=== PATIENT | female | born 1990 | race Caucasian/White ===

== ENCOUNTER → 2016-10-07 | Outpatient (CLI) | payer OTHER ==
[2016-10-07 12:41] LABS: BASO # 0.1 K/mm3 (0.0-0.2); BASO % 0.9 % (0.0-1.0); EOS # 0.2 K/mm3 (0.0-0.50); EOS % 2.6 % (0.0-3.0); LARGE UNSTAINED CELL # 0.1 K/mm3 (0.0-0.4); LARGE UNSTAINED CELL % 1.1 % (0.0-4.0); LYMPH # 2.1 K/mm3 (1.5-6.5); LYMPH % 23.1 % (24.0-44.0); MEAN CORPUSCULAR HEMOGLOBIN 28.5 pg (27.0-33.0); MEAN CORPUSCULAR VOLUME 83.7 fl (80.0-96.0); MONO # 0.4 K/mm3 (0.0-0.8); MONO % 4.4 % (0.0-5.0); NEUTROPHILS # 6.3 K/mm3 (1.8-7.7); NEUTROPHILS % 67.8 % (36.0-66.0); PLATELET COUNT, AUTOMATED 346 k/mm3 (150-450); RED CELL DISTRIBUTION WIDTH 13.5 % (11.5-14.5); WHITE BLOOD COUNT 9.3 K/mm3 (4.0-10.0)
[2016-10-07 13:44] LABS: HBsAg Prenatal NEGATIVE (NEGATIVE)
[2016-10-07 13:56] LABS: CONTROL LINE INT CTR LINE PRESENT; HIV SCRN NEGATIVE (NEGATIVE); HIV SCRN1 NEGATIVE (NEGATIVE)
== END ==
LOC: M WUC 10:36
PROVIDERS: ATTEND Advanced Practice Midwife
DX: Z34.81 Encounter for supervision of other normal pregnancy, first trimester (principal)

== ENCOUNTER 2016-10-11 02:22 | Emergency (ER) | payer OTHER ==
[2016-10-11] MEDS ORDERED: ONDANSETRON 4MG/2ML VIAL (J2405) As Ordered ONE (03:22)
[2016-10-11 03:52] LABS: BASO # 0.1 K/mm3 (0.0-0.2); BASO % 0.5 % (0.0-1.0); EOS # 0.3 K/mm3 (0.0-0.50); EOS % 2.3 % (0.0-3.0); LARGE UNSTAINED CELL # 0.1 K/mm3 (0.0-0.4); LARGE UNSTAINED CELL % 1.2 % (0.0-4.0); LYMPH # 3.2 K/mm3 (1.5-6.5); LYMPH % 27.5 % (24.0-44.0); MEAN CORPUSCULAR HEMOGLOBIN 28.5 pg (27.0-33.0); MEAN CORPUSCULAR HGB CONC 34.4 g/dl (32.0-36.5); MONO # 0.6 K/mm3 (0.0-0.8); MONO % 5.3 % (0.0-5.0); NEUTROPHILS # 7.3 K/mm3 (1.8-7.7); NEUTROPHILS % 63.3 % (36.0-66.0); PLATELET COUNT, AUTOMATED 354 k/mm3 (150-450); RED CELL DISTRIBUTION WIDTH 13.3 % (11.5-14.5); WHITE BLOOD COUNT 11.4 K/mm3 (4.0-10.0)
[2016-10-11 04:29] LABS: ALBUMIN 3.5 GM/DL (3.2-5.2); ALBUMIN/GLOBULIN RATIO 1.17 (1.00-1.93); ALKALINE PHOSPHATASE 58 U/L (45-117); ALT/SGPT 25 U/L (12-78); AMYLASE 28 U/L (25-115); ANION GAP 9 MEQ/L (8-16); AST/SGOT 16 U/L (15-37); BILIRUBIN,DIRECT < 0.1 MG/DL (0.0-0.2); BILIRUBIN,TOTAL 0.2 MG/DL (0.2-1.0); BLOOD UREA NITROGEN 8 MG/DL (7-18); CALCIUM LEVEL 8.6 MG/DL (8.5-10.1); CARBON DIOXIDE LEVEL 26 MEQ/L (21-32); CHLORIDE LEVEL 107 MEQ/L (98-107); CREATININE FOR GFR 0.73 MG/DL (0.55-1.02); GLOMERULAR FILTRATION RATE > 60.0 (>60); GLUCOSE, FASTING 87 MG/DL (70-105); HCG, SERUM QUANTITATIVE 7962 MIU/ML; POTASSIUM SERUM 3.8 MEQ/L (3.5-5.1); SODIUM LEVEL 142 MEQ/L (136-145); TOTAL PROTEIN 6.5 GM/DL (6.4-8.2)
[2016-10-11] MEDS ORDERED: metroNIDAZOLE (FLAGYL) 500 MG TAB As Ordered ONE (06:39)
--- NOTE | 2016-10-11 06:52 | EDDOCDS ---
Physician Documentation [facility] Name: Sarah Pope Age: 26 yrs Sex: Female : 1990 Arrival Date: 10/11/2016 Time: 02:22 Bed 11 Private MD: Disposition: 10/11/16 06:34 Discharged to Home/Self Care. Impression: related conditions, unspecified, first trimester, Abdominal and pelvic pain. - Condition is Stable. - Discharge Instructions: Abdominal Pain During , Ectopic , Abdominal Pain During , Uavw-[id number]-[id number], Ectopic , Umcy-ns-Rins. - Medication Reconciliation, Local Pharmacy Hours form. - Follow up: Rachana Cummings MD; When: 4 - 5 days; Reason: Continuance of care. - Problem is an ongoing problem. - Symptoms have improved. - Notes: YOUR ULTRASOUND SHOWS A GESTATIONAL SAC IN YOUR UTERUS WITHOUT POLE. THIS CAN INDICATE THAT EITHER THE IS TOO EARY FOR DETECTION OR IT COULD INDICATE THAT YOU ARE EXPERIENCING AN ECTOPIC . USE THE LAB SLIP PROVIDED TO HAVE A REPEAT BLOOD DRAW IN 3 DAYS AND CALL A WOMAN'S PERSPECTIVE ON WEDNESDAY MORNING TO GET SCHEDULED FOR AN APPOINTMENT. Historical: - Allergies: Haldol (Anaphylaxis); - Home Meds: 1. naproxen 250 mg Oral tab 2 tabs as needed Stopped due to 2. Prilosec 20 mg Oral cpDR 1 cap once daily stopped due to 3. med for blood pressure 4. amlodipine 10 mg Oral tab 1 tab once daily stopped due to - PMHx: alcohol abuse; GERD; Hypertension; - PSHx: Tonsillectomy; - Social history: Smoking status: other No barriers to communication noted, The patient speaks fluent Bengali, Speaks appropriately for age. - Family history: Not pertinent. - : The pt / caregiver states he / she is not on anticoagulants. Home medication list is obtained from the patient. - Exposure Risk Screening:: None identified. 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 Not a normal period. Tested positive for last Wednesday Vital Signs: 02:36 BP 177 / 105; Pulse 95; Resp 20; Temp 98.2(O); Pulse Ox 97% on R/A; Weight 149.69 kg / kmg1 330.01 lbs (M); Height 5 ft. 10 in. (177.80 cm) (R); Pain 6/10; 06:48 BP 136 / 70; Pulse 70; Resp 16; Temp 97(O); Pulse Ox 98% on R/A; Pain 0/10; jp6 02:36 Body Mass Index 47.35 (149.69 kg, 177.80 cm) [facility] MDM: 03:17 Ondansetron 4 mg IVP once ordered. mm11 03:17 IV Saline Lock ordered. mm11 03:17 Undress patient appropriately for examination ordered. mm11 03:17 Set up pelvic ordered. mm11 03:17 NS 0.9% 1000 ml IV at bolus once ordered. mm11 03:18 Amylase Ordered. EDMS 03:18 Basic Metabolic Profile Ordered. EDMS 03:18 CBC with Diff Ordered. EDMS 03:18 Lipase Ordered. EDMS 03:18 Liver Profile Ordered. EDMS 03:18 Type & Screen Ordered. EDMS 03:18 Urinalysis Ordered. EDMS 03:18 Urine Culture Ordered. EDMS 03:18 Hcg, Serum Quantitative Ordered. EDMS 03:18 NOTHING BY MOUTH+DIET ordered. EDMS 04:05 CBC with Diff Reviewed. mm11 04:05 Urinalysis Reviewed. mm11 04:06 GC & Chlamydia Amplification Ordered. EDMS 04:06 Wet Prep Ordered. EDMS 04:12 1st Trimester Us Ordered. EDMS 04:48 Amylase Reviewed. mm11 04:48 Basic Metabolic Profile Reviewed. mm11 04:48 Lipase Reviewed. mm11 04:48 Liver Profile Reviewed. mm11 04:48 Type & Screen Reviewed. mm11 04:48 Hcg, Serum Quantitative Reviewed. mm11 04:48 Wet Prep Reviewed. mm11 05:19 Financial registration complete. hs2 05:49 [facility] Payment Agreement was scanned into [employer] and attached to record. hs2 06:16 GC & Chlamydia Amplification Reviewed. mm11 06:33 metroNIDAZOLE 500 mg PO once ordered. mm11 Administered Medications: 03:53 Drug: NS 0.9% 1000 ml [sodium chloride 0.9 % intravenous solution] Route: IV; Rate: jp6 bolus; Site: left upper arm; 03:56 Drug: Ondansetron 4 mg Route: IVP; Site: left forearm; jp6 06:47 Drug: metroNIDAZOLE 500 mg [metronidazole 500 mg tablet (1 tabs)] Route: PO; jp6 Signatures: Dispatcher [employer] Caitlyn English, RN RN kmg1 Brenden Richardson, DO mm11 Pati Ch, Reg Reg hs2 Ayala Bedoya,ABI RN jp6 The chart was reviewed and I authenticate all verbal orders and agree with the evaluation and treatment provided.Attachments: 05:49 [facility] Payment Agreement hs2 MTDD
--- NOTE | 2016-10-11 06:53 | EDDOCDS ---
Nurse's Notes [facility] Name: Sarah Pope Age: 26 yrs Sex: Female : 1990 Arrival Date: 10/11/2016 Time: 02:22 Bed 11 Private MD: Diagnosis: related conditions, unspecified, first trimester;Abdominal and pelvic pain Presentation: 10/11 02:30 Presenting complaint: Patient states: Low mid and right sided abdominal pain started kmg1 Wednes evening. Got worse today. Denies vaginal bleeding. Risk factors: the patient reports no vaginal bleeding. Suicide/Homicide risk assessment- the patient denies having any suicidal and/or homicidal ideations and does not present with any other emotional, behavioral or mental health complaints. Status: Patient is not a director career services or dependent. Transition of care: patient was not received from another setting of care. 02:30 Acuity: RAFAEL Level 3 km 02:30 Method Of Arrival: Walkin/Carried/[facility]std [facility] 06:51 Adult Sepsis Screening: The patient does not have new or worsening altered mentation. jp6 Patient's respiratory rate is less than 22. Systolic blood pressure is greater than 100. Patient has a qSOFA score of 0- Negative Sepsis Screen. Triage Assessment: 02:36 General: Appears in no apparent distress, uncomfortable, Behavior is appropriate for kmg1 age, crying. Pain: Location: suprapubic area and right lower quadrant Pain currently is 7 out of 10 on a pain scale. Quality of pain is described as. HIV screening NA for this visit Offered previously. GI: Abdomen is non- distended obese, Reports lower abdominal pain, nausea. 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 Not a normal period. Tested positive for last Wednesday Historical: - Allergies: Haldol (Anaphylaxis); - Home Meds: 1. naproxen 250 mg Oral tab 2 tabs as needed Stopped due to 2. Prilosec 20 mg Oral cpDR 1 cap once daily stopped due to 3. med for blood pressure 4. amlodipine 10 mg Oral tab 1 tab once daily stopped due to - PMHx: alcohol abuse; GERD; Hypertension; - PSHx: Tonsillectomy; - Social history: Smoking status: other No barriers to communication noted, The patient speaks fluent Taiwanese, Speaks appropriately for age. - Family history: Not pertinent. - : The pt / caregiver states he / she is not on anticoagulants. Home medication list is obtained from the patient. - Exposure Risk Screening:: None identified. Screenin:05 Screening information is obtained from the patient. Fall risk: No risks identified. jp6 Assistance ADL's: requires no assistance with activities of daily living. Abuse/DV Screen: The patient / caregiver reports he/she is: not in a situation that causes fear, pain or injury. Nutritional screening: No deficits noted. Advance Directives: Currently, there is no health care proxy. There is no active DNR order. There is no living will. home support is adequate. Assessment: 03:05 General: Appears distressed, obese, well developed, well nourished, Behavior is jp6 anxious, appropriate for age, cooperative. Pain: Location: abdomen and right lower quadrant and suprapubic area Pain currently is 6 out of 10 on a pain scale. Quality of pain is described as pressure. Neurological: No deficits noted. Level of Consciousness is awake, Oriented to person, place, time. EENT: No deficits noted. Cardiovascular: No deficits noted. Capillary refill < 3 seconds Heart tones S1 S2 present. Respiratory: Airway is patent Respiratory effort is even, unlabored, Respiratory pattern is regular, symmetrical, Breath sounds are clear bilaterally. GI: Abdomen is flat, non- distended obese, Stools are reported to be "green". Bowel sounds present X 4 quads. Abd is soft X 4 quads. : No deficits noted. Derm: Skin is pink, warm & dry. Musculoskeletal: No deficits noted. 04:00 Reassessment: Patient appears in no apparent distress at this time. jp6 06:48 Reassessment: Patient appears in no apparent distress at this time. General: Appears. jp6 Pain: Denies pain. Cardiovascular: No deficits noted. Respiratory: Airway is patent Respiratory effort is even, unlabored, Respiratory pattern is regular, symmetrical. Derm: Skin is pink, warm & dry. Vital Signs: 02:36 BP 177 / 105; Pulse 95; Resp 20; Temp 98.2(O); Pulse Ox 97% on R/A; Weight 149.69 kg kmg1 (M); Height 5 ft. 10 in. (177.80 cm) (R); Pain 6/10; 06:48 BP 136 / 70; Pulse 70; Resp 16; Temp 97(O); Pulse Ox 98% on R/A; Pain 0/10; jp6 02:36 Body Mass Index 47.35 (149.69 kg, 177.80 cm) [facility] Vitals: 02:36 Log In Time: October 11, 2016 at 02:24. [facility] ED Course: 02:24 Patient visited by Pati Ch Reg. hs2 02:24 Patient moved to Waiting hs2 02:33 Triage Initiated [facility] 02:48 Yesi Jain,RN is Primary Nurse. [facility] 02:48 Patient moved to 11 km 02:54 Primary Nurse role handed off by Yesi Jain,ABI [facility] 02:56 Ayala Bedoya,RN is Primary Nurse. jp6 03:05 The patient / caregiver is instructed regarding the plan of care and ED course. jp6 03:09 Brenden Richardson DO is Attending Physician. mm11 03:09 Patient visited by Brenden Richardson DO. mm11 03:16 Patient visited by Brenden Richardson DO. mm11 03:22 Urinalysis Sent. kmg1 03:22 Urine Culture Sent. kmg1 03:53 Inserted saline lock: 20 gauge in left antecubital area and blood collected. Labs jp6 drawn. (by ED staff). Sent per order to lab. 04:48 Patient visited by Brenden Richardson DO. mm11 05:49 [facility] Payment Agreement was scanned into [employer] and attached to record. hs2 05:51 Patient visited by Ayala Bedoya,ABI. jp6 06:33 Rachana Cummings MD is Referral Physician. mm11 06:48 Discontinued lock bleeding controlled, pressure dressing applied, No redness/swelling jp6 at site. No procedures done that require assistance. Administered Medications: 03:53 Drug: NS 0.9% 1000 ml [sodium chloride 0.9 % intravenous solution] Route: IV; Rate: jp6 bolus; Site: left upper arm; 03:56 Drug: Ondansetron 4 mg Route: IVP; Site: left forearm; jp6 06:47 Drug: metroNIDAZOLE 500 mg [metronidazole 500 mg tablet (1 tabs)] Route: PO; jp6 Order Results: Lab Order: Amylase; SPEC'10/11/16 03:43 Test: AMYLASE; Value: 28; Range: 25-115; Units: U/L; Status: F Lab Order: Basic Metabolic Profile; SPEC'10/11/16 03:43 Test: GLUCOSE, FASTING; Value: 87; Range: 70-105; Units: MG/DL; Status: F Test: BLOOD UREA NITROGEN; Value: 8; Range: 7-18; Units: MG/DL; Status: F Test: CREATININE FOR GFR; Value: 0.73; Range: 0.55-1.02; Units: MG/DL; Status: F Test: GLOMERULAR FILTRATION RATE; Value: > 60.0; Range: >60; Status: F Test: SODIUM LEVEL; Value: 142; Range: 136-145; Units: MEQ/L; Status: F Test: POTASSIUM SERUM; Value: 3.8; Range: 3.5-5.1; Units: MEQ/L; Status: F Test: CHLORIDE LEVEL; Value: 107; Range: 98-107; Units: MEQ/L; Status: F Test: CARBON DIOXIDE LEVEL; Value: 26; Range: 21-32; Units: MEQ/L; Status: F Test: ANION GAP; Value: 9; Range: 8-16; Units: MEQ/L; Status: F Test: CALCIUM LEVEL; Value: 8.6; Range: 8.5-10.1; Units: MG/DL; Status: F Test Note: ; Units are mL/min/1.73 m2 Chronic Kidney Disease Staging per NKF: Stage I & II GFR >=60 Normal to Mildly Decreased Stage III GFR 30-59 Moderately Decreased Stage IV GFR 15-29 Severely Decreased Stage V GFR <15 Very Little GFR Left ESRD GFR <15 on [facility] Lab Order: CBC with Diff; SPEC10/11/16 03:43 Test: WHITE BLOOD COUNT; Value: 11.4; Range: 4.0-10.0; Abnormal: Above high normal; Units: K/mm3; Status: F Test: RED BLOOD COUNT; Value: 4.49; Range: 4.00-5.40; Units: M/mm3; Status: F Test: HEMOGLOBIN; Value: 12.8; Range: 12.0-16.0; Units: g/dl; Status: F Test: HEMATOCRIT; Value: 37.3; Range: 36.0-47.0; Units: %; Status: F Test: MEAN CORPUSCULAR VOLUME; Value: 83.0; Range: 80.0-96.0; Units: fl; Status: F Test: MEAN CORPUSCULAR HEMOGLOBIN; Value: 28.5; Range: 27.0-33.0; Units: pg; Status: F Test: MEAN CORPUSCULAR HGB CONC; Value: 34.4; Range: 32.0-36.5; Units: g/dl; Status: F Test: RED CELL DISTRIBUTION WIDTH; Value: 13.3; Range: 11.5-14.5; Units: %; Status: F Test: PLATELET COUNT, AUTOMATED; Value: 354; Range: 150-450; Units: k/mm3; Status: F Test: NEUTROPHILS %; Value: 63.3; Range: 36.0-66.0; Units: %; Status: F Test: LYMPH %; Value: 27.5; Range: 24.0-44.0; Units: %; Status: F Test: MONO %; Value: 5.3; Range: 0.0-5.0; Abnormal: Above high normal; Units: %; Status: F Test: EOS %; Value: 2.3; Range: 0.0-3.0; Units: %; Status: F Test: BASO %; Value: 0.5; Range: 0.0-1.0; Units: %; Status: F Test: LARGE UNSTAINED CELL %; Value: 1.2; Range: 0.0-4.0; Units: %; Status: F Test: NEUTROPHILS #; Value: 7.3; Range: 1.8-7.7; Units: K/mm3; Status: F Test: LYMPH #; Value: 3.2; Range: 1.5-6.5; Units: K/mm3; Status: F Test: MONO #; Value: 0.6; Range: 0.0-0.8; Units: K/mm3; Status: F Test: EOS #; Value: 0.3; Range: 0.0-0.50; Units: K/mm3; Status: F Test: BASO #; Value: 0.1; Range: 0.0-0.2; Units: K/mm3; Status: F Test: LARGE UNSTAINED CELL #; Value: 0.1; Range: 0.0-0.4; Units: K/mm3; Status: F Lab Order: Lipase; [facility] 10/11/16 03:43 Test: LIPASE; Value: 99; Range: 73-393; Units: U/L; Status: F Lab Order: Liver Profile; [facility] 10/11/16 03:43 Test: AST/SGOT; Value: 16; Range: 15-37; Units: U/L; Status: F Test: ALT/SGPT; Value: 25; Range: 12-78; Units: U/L; Status: F Test: ALKALINE PHOSPHATASE; Value: 58; Range: 45-117; Units: U/L; Status: F Test: BILIRUBIN,TOTAL; Value: 0.2; Range: 0.2-1.0; Units: MG/DL; Status: F Test: BILIRUBIN,DIRECT; Value: < 0.1; Range: 0.0-0.2; Units: MG/DL; Status: F Test: TOTAL PROTEIN; Value: 6.5; Range: 6.4-8.2; Units: GM/DL; Status: F Test: ALBUMIN; Value: 3.5; Range: 3.2-5.2; Units: GM/DL; Status: F Test: ALBUMIN/GLOBULIN RATIO; Value: 1.17; Range: 1.00-1.93; Status: F Lab Order: Type & Screen; [facility] 10/11/16 03:33 Test: BLOOD TYPE; Value: A POS; Status: F Test: AB SCREEN (INDIRECT ROSENDA)GEL; Value: NEGATIVE; Status: F Lab Order: Urinalysis; [facility] 10/11/16 03:23 Test: APPEARANCE, URINE; Value: CLEAR; Range: CLEAR; Status: F Test: COLOR, URINE; Value: STRAW; Range: YELLOW; Status: F Test: PH,URINE; Value: 6.0; Range: 5.0-9.0; Units: UNITS; Status: F Test: SPECIFIC GRAVITY URINE AUTO; Value: 1.006; Range: 1.002-1.035; Status: F Test: PROTEIN, URINE AUTO; Value: NEGATIVE; Range: NEGATIVE; Units: mg/dL; Status: F Test: GLUCOSE, URINE (UA) AUTO; Value: NEGATIVE; Range: NEGATIVE; Units: mg/dL; Status: F Test: KETONE, URINE AUTO; Value: NEGATIVE; Range: NEGATIVE; Units: mg/dL; Status: F Test: UROBILINOGEN, URINE AUTO; Value: 0.2; Range: 0.0-2.0; Units: mg/dL; Status: F Test: BILIRUBIN, URINE AUTO; Value: NEGATIVE; Range: NEGATIVE; Status: F Test: NITRITE, URINE AUTO; Value: NEGATIVE; Range: NEGATIVE; Status: F Test: LEUKOCYTE ESTERASE, URINE AUTO; Value: TRACE; Range: NEGATIVE; Abnormal: Above high normal; Status: F Test: BLOOD, URINE BLOOD; Value: NEGATIVE; Range: NEGATIVE; Status: F Test: WBC, URINE AUTO; Value: 1; Range: 0-3; Units: /HPF; Status: F Test: RBC, URINE AUTO; Value: 2; Range: 0-3; Units: /HPF; Status: F Test: BACTERIA, URINE AUTO; Value: 1+; Range: NEGATIVE; Abnormal: Above high normal; Status: F Test: SQUAMOUS EPITHELIAL CELL UR AU; Value: 2; Range: 0-6; Units: /HPF; Status: F Test: HYALINE CAST, URINE AUTO; Value: 0; Range: 0-1; Units: /LPF; Status: F Lab Order: Hcg, Serum Quantitative; SPEC'M 10/11/16 03:43 Test: HCG, SERUM QUANTITATIVE; Value: 7962; Units: MIU/ML; Status: F Test Note: ; GESTATIONAL AGE APPROXIMATE HCG RANGE (MIU/ML) 0.2-1 WEEK 5-50 1-2 WEEKS 50-500 2-3 WEEKS 100-5,000 3-4 WEEKS 500-10,000 4-5 WEEKS 1,000-50,000 5-6 WEEKS 10,000-100,000 6-8 WEEKS 15,000-200,000 2-3 MONTHS 10,000-100,000 NON FEMALES LESS THAN 3.0 Patient samples may contain human heterophilic antibodies that could react with immunoassays to give falsely elevated or depressed results. This assay has been designed to minimize interference from heterophilic antibodies. Elevated hCG levels have also been associated with trophoblastic disease and nontrophoblastic neoplasms. The possibility of having these diseases should be considered before a diagnosis of is made. This test is not intended for use as a surrogate marker for aiding in the diagnosis or monitoring the treatment of cancer patients. Siemens Priccut methodology. Lab Order: Wet Prep; SPEC'M 10/11/16 04:05 Test: WET PREP; Value: WET PREP RESULT; Status: F Test: WET PREP; Value: MANY EPITHELIAL CELLS PRESENT; Status: F Test: WET PREP; Value: MODERATE WBC; Status: F Test: WET PREP; Value: FEW CLUE CELLS PRESENT; Status: F Test: WET PREP; Value: MANY LONG RODS PRESENT; Status: F Lab Order: GC & Chlamydia Amplification; SPEC'M 10/11/16 04:05 Test: CHLAMYDIA DNA AMPLIFICATION; Value: NEGATIVE; Range: NEGATIVE; Status: F Test: GC DNA AMPLIFICATION; Value: NEGATIVE; Range: NEGATIVE; Status: F Outcome: 06:34 Discharge ordered by Provider. mm11 06:48 Discharge Assessment: Patient awake, alert and oriented x 3. No cognitive and/or jp6 functional deficits noted. Patient verbalized understanding of disposition instructions. patient administered narcotics - no. The following High Risk Discharge criteria are identified: None. Discharged to home ambulatory, with family. Condition: stable. Discharge instructions given to patient, Instructed on discharge instructions, follow up and referral plans. Demonstrated understanding of instructions, Pt was receptive of discharge instructions/ teaching. No special radiology studies were completed. Property :Personal belongings accompany Pt. 06:51 Patient left the ED. jp6 Signatures: Caitlyn Ortiz, RN RN kmg1 Brenden Richardson, DO mm11 Telly Valiente RN RN ruthb Pati Ch, Reg Reg hs2 Ayala Bedoya RN RN jp6 MTDD
--- NOTE | 2016-10-11 07:30 | REPUSA ---
CLINICAL HISTORY: Pain. TECHNIQUE: Transabdominal and transvaginal ultrasound of the pelvis was performed. FINDINGS: The uterus is anteverted. Gestational sac measures 11.6 mm mean diameter, corresponding to gestational age of 6 weeks.Yoke sac is noted. There is no pole or heart beat. Both ovaries are identified without adnexal mass or pelvic fluid collection.2.4 cm right corpus luthe um cyst is noted. IMPRESSION: IUP without pole or heart beat. While this may represent an early , missed is not excluded. Short term follow up study may be obtained in 3-4 days.
--- NOTE | 2016-10-13 07:52 | EDDOCDS ---
Nurse's Notes [facility] Name: Sarah Pope Age: 26 yrs Sex: Female : 1990 Arrival Date: 10/11/2016 Time: 02:22 Bed 11 Private MD: Diagnosis: related conditions, unspecified, first trimester;Abdominal and pelvic pain Presentation: 10/11 02:30 Presenting complaint: Patient states: Low mid and right sided abdominal pain started kmg1 Wednes evening. Got worse today. Denies vaginal bleeding. Risk factors: the patient reports no vaginal bleeding. Suicide/Homicide risk assessment- the patient denies having any suicidal and/or homicidal ideations and does not present with any other emotional, behavioral or mental health complaints. Status: Patient is not a volunteer services coordinator or dependent. Transition of care: patient was not received from another setting of care. 02:30 Acuity: RAFAEL Level 3 km 02:30 Method Of Arrival: Walkin/Carried/[place]std [facility] [place] 06:51 Adult Sepsis Screening: The patient does not have new or worsening altered mentation. jp6 Patient's respiratory rate is less than 22. Systolic blood pressure is greater than 100. Patient has a qSOFA score of 0- Negative Sepsis Screen. Triage Assessment: 02:36 General: Appears in no apparent distress, uncomfortable, Behavior is appropriate for kmg1 age, crying. Pain: Location: suprapubic area and right lower quadrant Pain currently is 7 out of 10 on a pain scale. Quality of pain is described as. HIV screening NA for this visit Offered previously. GI: Abdomen is non- distended obese, Reports lower abdominal pain, nausea. 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 Not a normal period. Tested positive for last Wednesday Historical: - Allergies: Haldol (Anaphylaxis); - Home Meds: 1. naproxen 250 mg Oral tab 2 tabs as needed Stopped due to 2. Prilosec 20 mg Oral cpDR 1 cap once daily stopped due to 3. med for blood pressure 4. amlodipine 10 mg Oral tab 1 tab once daily stopped due to - PMHx: alcohol abuse; GERD; Hypertension; - PSHx: Tonsillectomy; - Social history: Smoking status: other No barriers to communication noted, The patient speaks fluent Namibian, Speaks appropriately for age. - Family history: Not pertinent. - : The pt / caregiver states he / she is not on anticoagulants. Home medication list is obtained from the patient. - Exposure Risk Screening:: None identified. Screenin:05 Screening information is obtained from the patient. Fall risk: No risks identified. jp6 Assistance ADL's: requires no assistance with activities of daily living. Abuse/DV Screen: The patient / caregiver reports he/she is: not in a situation that causes fear, pain or injury. Nutritional screening: No deficits noted. Advance Directives: Currently, there is no health care proxy. There is no active DNR order. There is no living will. home support is adequate. Assessment: 03:05 General: Appears distressed, obese, well developed, well nourished, Behavior is jp6 anxious, appropriate for age, cooperative. Pain: Location: abdomen and right lower quadrant and suprapubic area Pain currently is 6 out of 10 on a pain scale. Quality of pain is described as pressure. Neurological: No deficits noted. Level of Consciousness is awake, Oriented to person, place, time. EENT: No deficits noted. Cardiovascular: No deficits noted. Capillary refill < 3 seconds Heart tones S1 S2 present. Respiratory: Airway is patent Respiratory effort is even, unlabored, Respiratory pattern is regular, symmetrical, Breath sounds are clear bilaterally. GI: Abdomen is flat, non- distended obese, Stools are reported to be "green". Bowel sounds present X 4 quads. Abd is soft X 4 quads. : No deficits noted. Derm: Skin is pink, warm & dry. Musculoskeletal: No deficits noted. 04:00 Reassessment: Patient appears in no apparent distress at this time. jp6 06:48 Reassessment: Patient appears in no apparent distress at this time. General: Appears. jp6 Pain: Denies pain. Cardiovascular: No deficits noted. Respiratory: Airway is patent Respiratory effort is even, unlabored, Respiratory pattern is regular, symmetrical. Derm: Skin is pink, warm & dry. 10/12 20:08 General: patient called ED and stated her prescription was not at the given paharmacy. ryan Discussed with Dr Richardson and Flagyl 500mg PO BID X 7 days #[address] [facility] [id number]. pt is aware the RX was called to pharmacy.. Vital Signs: 10/11 02:36 BP 177 / 105; Pulse 95; Resp 20; Temp 98.2(O); Pulse Ox 97% on R/A; Weight 149.69 kg kmg1 (M); Height 5 ft. 10 in. (177.80 cm) (R); Pain 6/10; 06:48 BP 136 / 70; Pulse 70; Resp 16; Temp 97(O); Pulse Ox 98% on R/A; Pain 0/10; jp6 02:36 Body Mass Index 47.35 (149.69 kg, 177.80 cm) [facility] [place] Vitals: 02:36 Log In Time: October 11, 2016 at 02:24. [facility] [place] ED Course: 02:24 Patient visited by Pati Ch Reg. hs2 02:24 Patient moved to Waiting hs2 02:33 Triage Initiated [facility] [place] 02:48 Yesi Jain RN is Primary Nurse. [facility] [place] 02:48 Patient moved to [address] [place] [address] 02:54 Primary Nurse role handed off by Yesi Jain RN [facility] 02:56 Ayala Bedoya,ABI is Primary Nurse. jp6 03:05 The patient / caregiver is instructed regarding the plan of care and ED course. jp6 03:09 Brenden Richardson DO is Attending Physician. mm11 03:09 Patient visited by Brenden Richardson DO. mm11 03:16 Patient visited by Brenden Richardson DO. mm11 03:22 Urinalysis Sent. kmg1 03:22 Urine Culture Sent. kmg1 03:53 Inserted saline lock: 20 gauge in left antecubital area and blood collected. Labs jp6 drawn. (by ED staff). Sent per order to lab. 04:48 Patient visited by Brenden Richardson DO. mm11 05:49 [facility] Payment Agreement was scanned into [employer] and attached to record. hs2 05:51 Patient visited by Ayala Bedoya,ABI. jp6 06:33 Rachana Cummings MD is Referral Physician. mm11 06:48 Discontinued lock bleeding controlled, pressure dressing applied, No redness/swelling jp6 at site. No procedures done that require assistance. 07:53 1st Trimester Us Returned. EDMS 21:53 T-Sheet-- Draft Copy was scanned into [employer] and attached to record. klr Administered Medications: 03:53 Drug: NS 0.9% 1000 ml [sodium chloride 0.9 % intravenous solution] Route: IV; Rate: jp6 bolus; Site: left upper arm; 03:56 Drug: Ondansetron 4 mg Route: IVP; Site: left forearm; jp6 06:47 Drug: metroNIDAZOLE 500 mg [metronidazole 500 mg tablet (1 tabs)] Route: PO; jp6 Order Results: Lab Order: Amylase; SPEC'M 10/11/16 03:43 Test: AMYLASE; Value: 28; Range: 25-115; Units: U/L; Status: F Lab Order: Basic Metabolic Profile; SPEC'M 10/11/16 03:43 Test: GLUCOSE, FASTING; Value: 87; Range: 70-105; Units: MG/DL; Status: F Test: BLOOD UREA NITROGEN; Value: 8; Range: 7-18; Units: MG/DL; Status: F Test: CREATININE FOR GFR; Value: 0.73; Range: 0.55-1.02; Units: MG/DL; Status: F Test: GLOMERULAR FILTRATION RATE; Value: > 60.0; Range: >60; Status: F Test: SODIUM LEVEL; Value: 142; Range: 136-145; Units: MEQ/L; Status: F Test: POTASSIUM SERUM; Value: 3.8; Range: 3.5-5.1; Units: MEQ/L; Status: F Test: CHLORIDE LEVEL; Value: 107; Range: 98-107; Units: MEQ/L; Status: F Test: CARBON DIOXIDE LEVEL; Value: 26; Range: 21-32; Units: MEQ/L; Status: F Test: ANION GAP; Value: 9; Range: 8-16; Units: MEQ/L; Status: F Test: CALCIUM LEVEL; Value: 8.6; Range: 8.5-10.1; Units: MG/DL; Status: F Test Note: ; Units are mL/min/1.73 m2 Chronic Kidney Disease Staging per NKF: Stage I & II GFR >=60 Normal to Mildly Decreased Stage III GFR 30-59 Moderately Decreased Stage IV GFR 15-29 Severely Decreased Stage V GFR <15 Very Little GFR Left ESRD GFR <15 on SPRING INSPECTOR Lab Order: CBC with Diff; SPEC'M 10/11/16 03:43 Test: WHITE BLOOD COUNT; Value: 11.4; Range: 4.0-10.0; Abnormal: Above high normal; Units: K/mm3; Status: F Test: RED BLOOD COUNT; Value: 4.49; Range: 4.00-5.40; Units: M/mm3; Status: F Test: HEMOGLOBIN; Value: 12.8; Range: 12.0-16.0; Units: g/dl; Status: F Test: HEMATOCRIT; Value: 37.3; Range: 36.0-47.0; Units: %; Status: F Test: MEAN CORPUSCULAR VOLUME; Value: 83.0; Range: 80.0-96.0; Units: fl; Status: F Test: MEAN CORPUSCULAR HEMOGLOBIN; Value: 28.5; Range: 27.0-33.0; Units: pg; Status: F Test: MEAN CORPUSCULAR HGB CONC; Value: 34.4; Range: 32.0-36.5; Units: g/dl; Status: F Test: RED CELL DISTRIBUTION WIDTH; Value: 13.3; Range: 11.5-14.5; Units: %; Status: F Test: PLATELET COUNT, AUTOMATED; Value: 354; Range: 150-450; Units: k/mm3; Status: F Test: NEUTROPHILS %; Value: 63.3; Range: 36.0-66.0; Units: %; Status: F Test: LYMPH %; Value: 27.5; Range: 24.0-44.0; Units: %; Status: F Test: MONO %; Value: 5.3; Range: 0.0-5.0; Abnormal: Above high normal; Units: %; Status: F Test: EOS %; Value: 2.3; Range: 0.0-3.0; Units: %; Status: F Test: BASO %; Value: 0.5; Range: 0.0-1.0; Units: %; Status: F Test: LARGE UNSTAINED CELL %; Value: 1.2; Range: 0.0-4.0; Units: %; Status: F Test: NEUTROPHILS #; Value: 7.3; Range: 1.8-7.7; Units: K/mm3; Status: F Test: LYMPH #; Value: 3.2; Range: 1.5-6.5; Units: K/mm3; Status: F Test: MONO #; Value: 0.6; Range: 0.0-0.8; Units: K/mm3; Status: F Test: EOS #; Value: 0.3; Range: 0.0-0.50; Units: K/mm3; Status: F Test: BASO #; Value: 0.1; Range: 0.0-0.2; Units: K/mm3; Status: F Test: LARGE UNSTAINED CELL #; Value: 0.1; Range: 0.0-0.4; Units: K/mm3; Status: F Lab Order: Lipase; [facility] 10/11/16 03:43 Test: LIPASE; Value: 99; Range: 73-393; Units: U/L; Status: F Lab Order: Liver Profile; [facility] 10/11/16 03:43 Test: AST/SGOT; Value: 16; Range: 15-37; Units: U/L; Status: F Test: ALT/SGPT; Value: 25; Range: 12-78; Units: U/L; Status: F Test: ALKALINE PHOSPHATASE; Value: 58; Range: 45-117; Units: U/L; Status: F Test: BILIRUBIN,TOTAL; Value: 0.2; Range: 0.2-1.0; Units: MG/DL; Status: F Test: BILIRUBIN,DIRECT; Value: < 0.1; Range: 0.0-0.2; Units: MG/DL; Status: F Test: TOTAL PROTEIN; Value: 6.5; Range: 6.4-8.2; Units: GM/DL; Status: F Test: ALBUMIN; Value: 3.5; Range: 3.2-5.2; Units: GM/DL; Status: F Test: ALBUMIN/GLOBULIN RATIO; Value: 1.17; Range: 1.00-1.93; Status: F Lab Order: Type & Screen; [facility] 10/11/16 03:33 Test: BLOOD TYPE; Value: A POS; Status: F Test: AB SCREEN (INDIRECT ROSENDA)GEL; Value: NEGATIVE; Status: F Lab Order: Urinalysis; SPEC'M 10/11/16 03:23 Test: APPEARANCE, URINE; Value: CLEAR; Range: CLEAR; Status: F Test: COLOR, URINE; Value: STRAW; Range: YELLOW; Status: F Test: PH,URINE; Value: 6.0; Range: 5.0-9.0; Units: UNITS; Status: F Test: SPECIFIC GRAVITY URINE AUTO; Value: 1.006; Range: 1.002-1.035; Status: F Test: PROTEIN, URINE AUTO; Value: NEGATIVE; Range: NEGATIVE; Units: mg/dL; Status: F Test: GLUCOSE, URINE (UA) AUTO; Value: NEGATIVE; Range: NEGATIVE; Units: mg/dL; Status: F Test: KETONE, URINE AUTO; Value: NEGATIVE; Range: NEGATIVE; Units: mg/dL; Status: F Test: UROBILINOGEN, URINE AUTO; Value: 0.2; Range: 0.0-2.0; Units: mg/dL; Status: F Test: BILIRUBIN, URINE AUTO; Value: NEGATIVE; Range: NEGATIVE; Status: F Test: NITRITE, URINE AUTO; Value: NEGATIVE; Range: NEGATIVE; Status: F Test: LEUKOCYTE ESTERASE, URINE AUTO; Value: TRACE; Range: NEGATIVE; Abnormal: Above high normal; Status: F Test: BLOOD, URINE BLOOD; Value: NEGATIVE; Range: NEGATIVE; Status: F Test: WBC, URINE AUTO; Value: 1; Range: 0-3; Units: /HPF; Status: F Test: RBC, URINE AUTO; Value: 2; Range: 0-3; Units: /HPF; Status: F Test: BACTERIA, URINE AUTO; Value: 1+; Range: NEGATIVE; Abnormal: Above high normal; Status: F Test: SQUAMOUS EPITHELIAL CELL UR AU; Value: 2; Range: 0-6; Units: /HPF; Status: F Test: HYALINE CAST, URINE AUTO; Value: 0; Range: 0-1; Units: /LPF; Status: F Lab Order: Urine Culture; SPEC'M 10/11/16 03:23 Test: URINE CULTURE; Value: <EXTERNAL COMMENT eCWMed> FULL REPORT IN LAB NOTES (eCW and Medent).; Status: F Test: URINE CULTURE; Value: URINE CULTURE RESULT SPECIMEN APPEARS CONTAMINATED; Status: F Lab Order: Hcg, Serum Quantitative; SPEC'M 10/11/16 03:43 Test: HCG, SERUM QUANTITATIVE; Value: 7962; Units: MIU/ML; Status: F Test Note: ; GESTATIONAL AGE APPROXIMATE HCG RANGE (MIU/ML) 0.2-1 WEEK 5-50 1-2 WEEKS 50-500 2-3 WEEKS 100-5,000 3-4 WEEKS 500-10,000 4-5 WEEKS 1,000-50,000 5-6 WEEKS 10,000-100,000 6-8 WEEKS 15,000-200,000 2-3 MONTHS 10,000-100,000 NON FEMALES LESS THAN 3.0 Patient samples may contain human heterophilic antibodies that could react with immunoassays to give falsely elevated or depressed results. This assay has been designed to minimize interference from heterophilic antibodies. Elevated hCG levels have also been associated with trophoblastic disease and nontrophoblastic neoplasms. The possibility of having these diseases should be considered before a diagnosis of is made. This test is not intended for use as a surrogate marker for aiding in the diagnosis or monitoring the treatment of cancer patients. Siemens Superior methodology. Lab Order: Wet Prep; SPEC'M 10/11/16 04:05 Test: WET PREP; Value: WET PREP RESULT; Status: F Test: WET PREP; Value: MANY EPITHELIAL CELLS PRESENT; Status: F Test: WET PREP; Value: MODERATE WBC; Status: F Test: WET PREP; Value: FEW CLUE CELLS PRESENT; Status: F Test: WET PREP; Value: MANY LONG RODS PRESENT; Status: F Lab Order: GC & Chlamydia Amplification; SPEC'M 10/11/16 04:05 Test: CHLAMYDIA DNA AMPLIFICATION; Value: NEGATIVE; Range: NEGATIVE; Status: F Test: GC DNA AMPLIFICATION; Value: NEGATIVE; Range: NEGATIVE; Status: F Radiology Order: 1st Trimester Us Test: 1st Trimester Us REASON FOR EXAMINATION: r/o ectopic;Adnexal Pain r/o Torsion; ; CLINICAL HISTORY: Pain.; TECHNIQUE: Transabdominal and transvaginal ultrasound of the pelvis was performed.; FINDINGS: The uterus is anteverted.; Gestational sac measures 11.6 mm mean diameter, corresponding to gestational age of 6 weeks.Yoke sac; is noted.; There is no pole or heart beat.; Both ovaries are identified without adnexal mass or pelvic fluid collection.2.4 cm right corpus luthe; um cyst is noted.; IMPRESSION:; IUP without pole or heart beat. While this may represent an early , missed is; not excluded. Short term follow up study may be obtained in 3-4 days.; ; Outcome: 06:34 Discharge ordered by Provider. mm11 06:48 Discharge Assessment: Patient awake, alert and oriented x 3. No cognitive and/or jp6 functional deficits noted. Patient verbalized understanding of disposition instructions. patient administered narcotics - no. The following High Risk Discharge criteria are identified: None. Discharged to home ambulatory, with family. Condition: stable. Discharge instructions given to patient, Instructed on discharge instructions, follow up and referral plans. Demonstrated understanding of instructions, Pt was receptive of discharge instructions/ teaching. No special radiology studies were completed. Property :Personal belongings accompany Pt. 06:51 Patient left the ED. jp6 Signatures: Dispatcher [employer] EDMS Caitlyn Ortiz, RN RN kmg1 Regina Whitaker, RN Brenden Oconnell, DO DO mm11 Telly Valiente,RN RN Pati Oviedo, Reg Reg hs2 Ayala Bedoya RN RN jp6 Romy Barnett Chart Complete MTDD
--- NOTE | 2016-10-13 07:52 | EDDOCDS ---
Physician Documentation [facility] Name: Sarah Pope Age: 26 yrs Sex: Female : 1990 Arrival Date: 10/11/2016 Time: 02:22 Bed 11 Private MD: Disposition: 10/11/16 06:34 Discharged to Home/Self Care. Impression: related conditions, unspecified, first trimester, Abdominal and pelvic pain. - Condition is Stable. - Discharge Instructions: Abdominal Pain During , Ectopic , Abdominal Pain During , Rdfa-[id number]-[id number], Ectopic , Yjic-tc-Jjll. - Medication Reconciliation, Local Pharmacy Hours form. - Follow up: Rachana Cummings MD; When: 4 - 5 days; Reason: Continuance of care. - Problem is an ongoing problem. - Symptoms have improved. - Notes: YOUR ULTRASOUND SHOWS A GESTATIONAL SAC IN YOUR UTERUS WITHOUT POLE. THIS CAN INDICATE THAT EITHER THE IS TOO EARY FOR DETECTION OR IT COULD INDICATE THAT YOU ARE EXPERIENCING AN ECTOPIC . USE THE LAB SLIP PROVIDED TO HAVE A REPEAT BLOOD DRAW IN 3 DAYS AND CALL A WOMAN'S PERSPECTIVE ON WEDNESDAY MORNING TO GET SCHEDULED FOR AN APPOINTMENT. Historical: - Allergies: Haldol (Anaphylaxis); - Home Meds: 1. naproxen 250 mg Oral tab 2 tabs as needed Stopped due to 2. Prilosec 20 mg Oral cpDR 1 cap once daily stopped due to 3. med for blood pressure 4. amlodipine 10 mg Oral tab 1 tab once daily stopped due to - PMHx: alcohol abuse; GERD; Hypertension; - PSHx: Tonsillectomy; - Social history: Smoking status: other No barriers to communication noted, The patient speaks fluent Cape Verdean, Speaks appropriately for age. - Family history: Not pertinent. - : The pt / caregiver states he / she is not on anticoagulants. Home medication list is obtained from the patient. - Exposure Risk Screening:: None identified. 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 Not a normal period. Tested positive for last Wednesday Vital Signs: 02:36 BP 177 / 105; Pulse 95; Resp 20; Temp 98.2(O); Pulse Ox 97% on R/A; Weight 149.69 kg / kmg1 330.01 lbs (M); Height 5 ft. 10 in. (177.80 cm) (R); Pain 6/10; 06:48 BP 136 / 70; Pulse 70; Resp 16; Temp 97(O); Pulse Ox 98% on R/A; Pain 0/10; jp6 02:36 Body Mass Index 47.35 (149.69 kg, 177.80 cm) [facility] [place] MDM: 03:17 Ondansetron 4 mg IVP once ordered. mm11 03:17 IV Saline Lock ordered. mm11 03:17 Undress patient appropriately for examination ordered. mm11 03:17 Set up pelvic ordered. mm11 03:17 NS 0.9% 1000 ml IV at bolus once ordered. mm11 03:18 Amylase Ordered. EDMS 03:18 Basic Metabolic Profile Ordered. EDMS 03:18 CBC with Diff Ordered. EDMS 03:18 Lipase Ordered. EDMS 03:18 Liver Profile Ordered. EDMS 03:18 Type & Screen Ordered. EDMS 03:18 Urinalysis Ordered. EDMS 03:18 Urine Culture Ordered. EDMS 03:18 Hcg, Serum Quantitative Ordered. EDMS 03:18 NOTHING BY MOUTH+DIET ordered. EDMS 04:05 CBC with Diff Reviewed. mm11 04:05 Urinalysis Reviewed. mm11 04:06 GC & Chlamydia Amplification Ordered. EDMS 04:06 Wet Prep Ordered. EDMS 04:12 1st Trimester Us Ordered. EDMS 04:48 Amylase Reviewed. mm11 04:48 Basic Metabolic Profile Reviewed. mm11 04:48 Lipase Reviewed. mm11 04:48 Liver Profile Reviewed. mm11 04:48 Type & Screen Reviewed. mm11 04:48 Hcg, Serum Quantitative Reviewed. mm11 04:48 Wet Prep Reviewed. mm11 05:19 Financial registration complete. hs2 05:49 [facility] [place] Agreement was scanned into [employer] and attached to record. hs2 06:16 GC & Chlamydia Amplification Reviewed. mm11 06:33 metroNIDAZOLE 500 mg PO once ordered. mm11 21:53 T-Sheet-- Draft Copy was scanned into [employer] and attached to record. klr Administered Medications: 03:53 Drug: NS 0.9% 1000 ml [sodium chloride 0.9 % intravenous solution] Route: IV; Rate: jp6 bolus; Site: left upper arm; 03:56 Drug: Ondansetron 4 mg Route: IVP; Site: left forearm; jp6 06:47 Drug: metroNIDAZOLE 500 mg [metronidazole 500 mg tablet (1 tabs)] Route: PO; jp6 Signatures: Dispatcher [employer] Caitlyn English, ABI RN kmg1 Brenden Richardson, DO DO mm11 Pati Ch, Reg Reg hs2 Ayala Bedoya RN RN jp6 Romy Barnett The chart was reviewed and I authenticate all verbal orders and agree with the evaluation and treatment provided.Attachments: 05:49 [facility] Payment Agreement hs2 21:53 T-Sheet-- Draft Copy klr Chart Complete MTDD
--- NOTE | 2016-10-13 07:52 | EDDOCDS ---
Physician Documentation [facility] Name: Sarah Pope Age: 26 yrs Sex: Female : 1990 Arrival Date: 10/11/2016 Time: 02:22 Bed 11 Private MD: Disposition: 10/11/16 06:34 Discharged to Home/Self Care. Impression: related conditions, unspecified, first trimester, Abdominal and pelvic pain. - Condition is Stable. - Discharge Instructions: Abdominal Pain During , Ectopic , Abdominal Pain During , Eber-go-Ymwm, Ectopic , Owaq-rj-Pbxr. - Medication Reconciliation, Local Pharmacy Hours form. - Follow up: Rachana Cummings MD; When: 4 - 5 days; Reason: Continuance of care. - Problem is an ongoing problem. - Symptoms have improved. - Notes: YOUR ULTRASOUND SHOWS A GESTATIONAL SAC IN YOUR UTERUS WITHOUT POLE. THIS CAN INDICATE THAT EITHER THE IS TOO EARY FOR DETECTION OR IT COULD INDICATE THAT YOU ARE EXPERIENCING AN ECTOPIC . USE THE LAB SLIP PROVIDED TO HAVE A REPEAT BLOOD DRAW IN 3 DAYS AND CALL A WOMAN'S PERSPECTIVE ON WEDNESDAY MORNING TO GET SCHEDULED FOR AN APPOINTMENT. Historical: - Allergies: Haldol (Anaphylaxis); - Home Meds: 1. naproxen 250 mg Oral tab 2 tabs as needed Stopped due to 2. Prilosec 20 mg Oral cpDR 1 cap once daily stopped due to 3. med for blood pressure 4. amlodipine 10 mg Oral tab 1 tab once daily stopped due to - PMHx: alcohol abuse; GERD; Hypertension; - PSHx: Tonsillectomy; - Social history: Smoking status: other No barriers to communication noted, The patient speaks fluent South African, Speaks appropriately for age. - Family history: Not pertinent. - : The pt / caregiver states he / she is not on anticoagulants. Home medication list is obtained from the patient. - Exposure Risk Screening:: None identified. 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 Not a normal period. Tested positive for last Wednesday Vital Signs: 02:36 BP 177 / 105; Pulse 95; Resp 20; Temp 98.2(O); Pulse Ox 97% on R/A; Weight 149.69 kg / kmg1 330.01 lbs (M); Height 5 ft. 10 in. (177.80 cm) (R); Pain 6/10; 06:48 BP 136 / 70; Pulse 70; Resp 16; Temp 97(O); Pulse Ox 98% on R/A; Pain 0/10; jp6 02:36 Body Mass Index 47.35 (149.69 kg, 177.80 cm) [facility] [place] MDM: 03:17 Ondansetron 4 mg IVP once ordered. mm11 03:17 IV Saline Lock ordered. mm11 03:17 Undress patient appropriately for examination ordered. mm11 03:17 Set up pelvic ordered. mm11 03:17 NS 0.9% 1000 ml IV at bolus once ordered. mm11 03:18 Amylase Ordered. EDMS 03:18 Basic Metabolic Profile Ordered. EDMS 03:18 CBC with Diff Ordered. EDMS 03:18 Lipase Ordered. EDMS 03:18 Liver Profile Ordered. EDMS 03:18 Type & Screen Ordered. EDMS 03:18 Urinalysis Ordered. EDMS 03:18 Urine Culture Ordered. EDMS 03:18 Hcg, Serum Quantitative Ordered. EDMS 03:18 NOTHING BY MOUTH+DIET ordered. EDMS 04:05 CBC with Diff Reviewed. mm11 04:05 Urinalysis Reviewed. mm11 04:06 GC & Chlamydia Amplification Ordered. EDMS 04:06 Wet Prep Ordered. EDMS 04:12 1st Trimester Us Ordered. EDMS 04:48 Amylase Reviewed. mm11 04:48 Basic Metabolic Profile Reviewed. mm11 04:48 Lipase Reviewed. mm11 04:48 Liver Profile Reviewed. mm11 04:48 Type & Screen Reviewed. mm11 04:48 Hcg, Serum Quantitative Reviewed. mm11 04:48 Wet Prep Reviewed. mm11 05:19 Financial registration complete. hs2 05:49 [facility] Payment Agreement was scanned into [employer] and attached to record. hs2 06:16 GC & Chlamydia Amplification Reviewed. mm11 06:33 metroNIDAZOLE 500 mg PO once ordered. mm11 21:53 T-Sheet-- Draft Copy was scanned into [employer] and attached to record. klr Administered Medications: 03:53 Drug: NS 0.9% 1000 ml [sodium chloride 0.9 % intravenous solution] Route: IV; Rate: jp6 bolus; Site: left upper arm; 03:56 Drug: Ondansetron 4 mg Route: IVP; Site: left forearm; jp6 06:47 Drug: metroNIDAZOLE 500 mg [metronidazole 500 mg tablet (1 tabs)] Route: PO; jp6 Signatures: Dispatcher [employer] Caitlyn English, ABI RN kmg1 Brenden Richardson, DO DO mm11 Pati Ch, Reg Reg hs2 Ayala Bedoya RN RN jp6 Romy Barnett The chart was reviewed and I authenticate all verbal orders and agree with the evaluation and treatment provided.Attachments: 05:49 [facility] Payment Agreement hs2 21:53 T-Sheet-- Draft Copy klr Chart Complete MTDD
== END 2016-10-11 06:51 | disposition home or self-care (01) ==
LOC: M ED 02:22
DX: O23.591 Infection of other part of genital tract in pregnancy, first trimester (principal); O10.911 Unspecified pre-existing hypertension complicating pregnancy, first trimester; O99.611 Diseases of the digestive system complicating pregnancy, first trimester; K21.9 Gastro-esophageal reflux disease without esophagitis; Z79.899 Other long term (current) drug therapy; Z88.8 Allergy status to other drugs, medicaments and biological substances; Z3A.11 11 weeks gestation of pregnancy
CPT/HCPCS: 36415; 76801; 80048; 80076; 81001; 82150; 83690; 84702; 85025; 86850; 86900; 86901; 87086; 87210; 87491; 87591; 96374; 99284; J2405

== ENCOUNTER → 2016-10-13 | Outpatient (CLI) | payer OTHER | LOC: M WUC 08:13 | PROVIDERS: ATTEND Emergency Medicine | DX: O00.80 Other ectopic pregnancy without intrauterine pregnancy (principal) ==

== ENCOUNTER → 2016-10-26 | Outpatient (CLI) | payer OTHER | LOC: M LAB 11:22 | PROVIDERS: ATTEND Advanced Practice Midwife | DX: O10.011 Pre-existing essential hypertension complicating pregnancy, first trimester (principal); Z3A.00 Weeks of gestation of pregnancy not specified ==

== ENCOUNTER → 2016-11-03 | Outpatient (CLI) | payer OTHER | LOC: M LAB 07:23 | PROVIDERS: ATTEND Advanced Practice Midwife | DX: O10.012 Pre-existing essential hypertension complicating pregnancy, second trimester (principal); Z3A.00 Weeks of gestation of pregnancy not specified ==

== ENCOUNTER → 2016-11-13 | Outpatient (CLI) | payer OTHER | LOC: M SMT 10:17 | PROVIDERS: ATTEND Obstetrics & Gynecology | DX: Z13.79 Encounter for other screening for genetic and chromosomal anomalies (principal); Z3A.00 Weeks of gestation of pregnancy not specified ==

== ENCOUNTER → 2016-11-25 | Outpatient (CLI) | payer OTHER | LOC: M SMT 10:32 | PROVIDERS: ATTEND Advanced Practice Midwife | DX: Z31.438 Encounter for other genetic testing of female for procreative management (principal) ==

== ENCOUNTER → 2016-12-10 | Outpatient (REF) | payer OTHER ==
[2016-12-13 00:06] LABS: Lyme Disease IgG/IgM Antibodie <0.91 ISR (0.00-0.90); Lyme Disease IgM Ab Quantitati <0.80 index (0.00-0.79)
== END ==
LOC: M LAB REF 16:49
PROVIDERS: ATTEND Internal Medicine
DX: M25.50 Pain in unspecified joint (principal)

== ENCOUNTER → 2017-01-27 | Outpatient (CLI) | payer OTHER ==
[~2017-01-27] MED LIST: LABE10TAB PO; PRENTAB9 PO
--- NOTE | 2017-01-27 16:34 | REP ---
Clinical: Anatomical evaluation. Comparison: 10/11/2016 . Findings: Examination demonstrates a single live intrauterine in breech presentation. motion is identified by technologist. Placenta is noted anteriorly and grade zero without evidence for placenta previa or abruption. Amniotic fluid volume is normal. Cervix measures 5.1 cm in length and appears closed. No evidence for nuchal cord. Gestational age by LMP the 20 weeks 6 days with MURRAY 06/10/2017 . Gestational age by current measurements 22 weeks 3 days with MURRAY 05/30/2017 . FHR equals 132 beats per minute. BPD 5.3 cm 22 weeks 1 day HC 20.2 cm 22 weeks 2 days AC 17.3 cm 22 weeks 2 days FL 3.9 cm 22 weeks 3 days HL 3.7 cm 22 weeks 6 days HC/AC ratio 1.16 Estimated weight 494 grams ( 43rd percentile). Anatomical assessment demonstrates normal structures including cranium, cavum, diaphragm, stomach, cord insertion, bladder, and lower extremities. Limited evaluation of the cord plexus, cerebellum, facial features, heart/ventricular outflow tracts, three-vessel cord, kidneys, spine and upper extremities noted. Impression: Single live intrauterine in breech presentation. Anatomical limitations as described above require follow-up. Signed by Himanshu Manley MD 01/27/2017 04:26 P
== END ==
LOC: M RAD 15:42
PROVIDERS: ATTEND Advanced Practice Midwife
DX: O10.012 Pre-existing essential hypertension complicating pregnancy, second trimester (principal); Z3A.20 20 weeks gestation of pregnancy

== ENCOUNTER 2017-01-28 22:10 | Outpatient (CLI) | payer MEDICAID, OTHER ==
[~2017-01-28] VITALS: Ht 175.3 cm; Wt 143.0 kg
[2017-01-28 22:49] VITALS: BP 139/77
[2017-01-28] MEDS ORDERED: LABE10TAB PO (23:15)
[2017-01-28] MEDS ORDERED: PRENTAB9 PO (23:15)
== END 2017-01-28 23:06 | disposition home or self-care (01) ==
LOC: M LDO 22:10
PROVIDERS: ATTEND Specialist
DX: O99.89 Other specified diseases and conditions complicating pregnancy, childbirth and the puerperium (principal); Z3A.21 21 weeks gestation of pregnancy; N39.0 Urinary tract infection, site not specified; R10.2 Pelvic and perineal pain

== ENCOUNTER 2017-02-04 09:07 | Outpatient (CLI) | payer MEDICAID, OTHER ==
[2017-02-04] VITALS (14 sets, daily range): BP systolic 115–156; BP diastolic 57–92
[~2017-02-04] VITALS: Ht 172.7 cm; Wt 146.0 kg
[2017-02-04] MEDS ORDERED: RANI1TAB6 PO (09:15)
[2017-02-04] MEDS ORDERED: NITR100C37 PO (09:27)
[2017-02-04] MEDS ORDERED: ACETAMINOPHEN TAB 650MG DOSE (2X325MG) PO PRN (10:30)
== END 2017-02-04 14:45 | disposition home or self-care (01) ==
LOC: M LDO 09:07
PROVIDERS: ATTEND Advanced Practice Midwife
DX: O26.892 Other specified pregnancy related conditions, second trimester (principal); O13.2 Gestational [pregnancy-induced] hypertension without significant proteinuria, second trimester; Z3A.22 22 weeks gestation of pregnancy; Z88.8 Allergy status to other drugs, medicaments and biological substances; Z79.899 Other long term (current) drug therapy

== ENCOUNTER → 2017-02-10 | Outpatient (CLI) | payer OTHER ==
[~2017-02-10] MED LIST changes: +NITR100C37 PO; +RANI1TAB6 PO
--- NOTE | 2017-02-10 21:31 | REP ---
Clinical: Anatomical evaluation. Comparison: 01/27/2017 . Findings: Examination demonstrates a single live intrauterine in transverse (head towards maternal right) presentation. motion is identified by technologist. Placenta is noted anteriorly and grade zero without evidence for placenta previa or abruption. Amniotic fluid volume is normal. Cervix measures 4.3 cm in length and appears closed. No evidence for nuchal cord. Gestational age by LMP 22 weeks 6 days with MURRAY 06/10/2017 . Gestational age by current measurements 24 weeks 0 days with MURRAY 06/02/2017 . FHR equals 141 beats per minute. Estimated weight equals 626 grams (27% based on age by first US) Anatomical assessment demonstrates normal structures including cranium, choroid plexus, cavum, lungs, ventricular outflow tracts, diaphragm, stomach, cord insertion/three-vessel cord, kidneys/bladder, spine, and extremities. Limited evaluation of the posterior fossa/cerebellum and facial features as well as cardiac ventricular outflow tracts noted. Impression: 1. Single live intrauterine in oblique presentation demonstrating appropriate interval growth. 2. Anatomical limitations as described above may warrant reevaluation and follow-up. Signed by Himanshu Manley MD 02/10/2017 09:22 P
== END ==
LOC: M RAD 10:33
PROVIDERS: ATTEND Advanced Practice Midwife
DX: O99.212 Obesity complicating pregnancy, second trimester (principal); Z3A.22 22 weeks gestation of pregnancy

== ENCOUNTER → 2017-02-11 | Outpatient (CLI) | payer OTHER ==
[2017-02-11 10:13] LABS: MEAN CORPUSCULAR HEMOGLOBIN 29.1 pg (27.0-33.0); MEAN CORPUSCULAR HGB CONC 34.2 g/dl (32.0-36.5); MEAN CORPUSCULAR VOLUME 85.2 fl (80.0-96.0); RED CELL DISTRIBUTION WIDTH 14.2 % (11.5-14.5); WHITE BLOOD COUNT 12.6 K/mm3 (4.0-10.0)
== END ==
LOC: M LAB 08:05
PROVIDERS: ATTEND Obstetrics & Gynecology
DX: O10.011 Pre-existing essential hypertension complicating pregnancy, first trimester (principal)

== ENCOUNTER → 2017-02-16 | Outpatient (CLI) | payer MEDICAID, OTHER, SELFPAY | LOC: M LAB 08:36 | PROVIDERS: ATTEND Specialist | DX: O99.213 Obesity complicating pregnancy, third trimester (principal) ==

== ENCOUNTER → 2017-03-02 | Outpatient (CLI) | payer MEDICAID, OTHER | LOC: M RAD 11:26 | PROVIDERS: ATTEND Specialist | DX: Z34.82 Encounter for supervision of other normal pregnancy, second trimester (principal) ==

== ENCOUNTER → 2017-03-18 | Outpatient (CLI) | payer MEDICAID ==
[~2017-03-18] MED LIST changes: +METHY25TA PO; +MOTR200T44 PO; -NITR100C37 PO; +NITR100C39 PO; +OXYC1TAB23 PO
--- NOTE | 2017-03-18 16:17 | REP ---
Clinical: Anatomical evaluation. Comparison: 03/02/2017 . Findings: Examination demonstrates a single live intrauterine in transverse (head to maternal left) presentation. motion is identified by technologist. Placenta is noted anteriorly and grade one without evidence for placenta previa or abruption. Amniotic fluid volume is normal. Cervix measures 4.2 cm in length and appears closed. No evidence for nuchal cord. Gestational age by LMP 28 weeks 0 days with MURRAY 06/10/2017 . Gestational age by current measurements 30 weeks 5 days with MURRAY 05/22/2017 . FHR equals 136 beats per minute. Estimated weight 1549 grams ( 60th percentile). Amniotic fluid volume equals 12.5 cm (9.1 - 23.5). Anatomical assessment demonstrates normal structures including cranium, cavum, cerebellum/posterior fossa, facial features, lungs, stomach, bladder, and spine. Impression: Single live intrauterine in transverse lie demonstrating appropriate interval growth. In conjunction with multiple prior examinations, limited evaluation of the heart and cardiac ventricular outflow tracts is again noted and the remainder of the anatomical assessment is within normal limits. Signed by Himanshu Manley MD 03/18/2017 04:08 P
== END ==
LOC: M RAD 14:54
PROVIDERS: ATTEND Obstetrics & Gynecology
DX: Z34.82 Encounter for supervision of other normal pregnancy, second trimester (principal)

== ENCOUNTER → 2017-03-31 | Outpatient (REF) | payer MEDICAID | LOC: M LAB REF 12:52 | PROVIDERS: ATTEND Advanced Practice Midwife | DX: O10.013 Pre-existing essential hypertension complicating pregnancy, third trimester (principal); Z3A.00 Weeks of gestation of pregnancy not specified ==

== ENCOUNTER → 2017-04-16 | Outpatient (CLI) | payer MEDICAID ==
--- NOTE | 2017-04-16 21:03 | REP ---
Follow-up OB ultrasound: 04/16/2017. Clinical history: Supervision of . Evaluate for growth. Comparison: 03/18/2017, 03/02/2017, 02/10/2017. Findings: Examination today shows a single intrauterine gestation in breech presentation. Cervix is obscured by shadowing from the fetus. There is an anterior grade 1 placenta without previa or abruption. Amniotic fluid volume is visually normal with an index of 17.1 and the normal range is 8.2 - 24.7. Largest of the three fluid pockets is 6.8 cm. Mid cord umbilical artery Doppler shows S/D ratio 2.93 with normal forward diastolic flow and resistive index of 0.66. biometry. BPD 9.2 cm = 37 weeks 1 day HC 32.5 cm = 36 weeks 6 days AC 32.7 cm = 36 weeks 4 days FL 7.2 cm = 37 weeks HL 6.4 cm = 37 weeks This gives an average ultrasound age 36 weeks 4 days. EDC by today's study would be 05/10/2017. By initial ultrasound she is 33 weeks 5 days, EDC 05/30/2017. All measurements are 95th percentile or greater. The measurement ratios are in the normal range. The estimated weight is 3038 grams or 6 pounds 11 ounces, which is greater than 97 percentile for dating based on that initial ultrasound (33 weeks 5 days). Limited anatomy seen with cranial vault, cavum septum pellucidum, stomach bubble, kidneys and bladder. The examination should be seen to be a complete anatomic evaluation based on multiple prior studies. The slope of the growth curve has increased. Previous study in March showed a 60th percentile weight. Impression: Single insuring gestation in breech position with cervix obscured but with an anterior grade 1 placenta without previa or abruption and visually normal amniotic fluid volume and cord Doppler. Heart rate 132 and regular. Average ultrasound age by today's study 36 weeks 4 days compared to 33 weeks 5 days by initial ultrasound giving EDC 05/30/2017 with estimated weight 3038 grams or 6 pounds 11 ounces. This is greater than 97th percentile for that initial dating and would be considered to be macrosomia. Signed by Danilo Pryor MD 04/16/2017 10:38 P
== END ==
LOC: M RAD 14:12
PROVIDERS: ATTEND Obstetrics & Gynecology
DX: O10.012 Pre-existing essential hypertension complicating pregnancy, second trimester (principal); Z3A.36 36 weeks gestation of pregnancy

== ENCOUNTER → 2017-05-05 | Outpatient (CLI) | payer MEDICAID ==
--- NOTE | 2017-05-05 17:29 | REP ---
OB ULTRASOUND: Real-time sonographic evaluation of the gravid uterus is performed. There is a single living intrauterine gestation. The estimated gestational age is 36 weeks 3 days, EDC 05/30/2017. Today's measurements indicate appropriate growth. BPD 96 mm = 39 weeks 0 days, at the 87th percentile. HC 338 mm = 38 weeks 5 days, at the 89th percentile. AC 348 mm = 38 weeks 5 days, at the 85th percentile. Femur length 75 mm = 38 weeks 1 day, at the 76th percentile. HC/AC ratio 0.97 within normal range. Estimated weight 3547 grams, 92nd percentile. Amniotic fluid appears within normal limits. DENVER 17.3 within normal range of 7.6 and 24.7. position is vertex. heart rate is 143 beats per minute. Placenta is anterior and grade 2 with no previa or abruption. Cervix is closed and measures 4.8 cm in length. IMPRESSION: Appropriate growth. Signed by Killian Gudino MD 05/05/2017 05:37 P
== END ==
LOC: M RAD 14:50
PROVIDERS: ATTEND Specialist
DX: O36.63X1 Maternal care for excessive fetal growth, third trimester, fetus 1 (principal); Z3A.36 36 weeks gestation of pregnancy

== ENCOUNTER 2017-05-12 12:48 | Outpatient (CLI) | payer MEDICAID ==
[2017-05-12] VITALS (7 sets, daily range): BP systolic 118–134; BP diastolic 60–75
[~2017-05-12] VITALS: Ht 177.8 cm; Wt 152.0 kg
[~2017-05-12 12:48] MED LIST changes: +LABETALOL 100 MG TAB PO SCH; -METHY25TA PO; -MOTR200T44 PO; -OXYC1TAB23 PO
[2017-05-12] MEDS ORDERED: METHY25TA PO (13:50)
[2017-05-12] MEDS ORDERED: BETAMETHASONE SOLUSPAN 6MG/ML INJ 5ML (J0702) IM SCH (14:00)
[2017-05-12 14:54] LABS: ALT/SGPT 33 U/L (12-78); AST/SGOT 16 U/L (15-37); BILIRUBIN,TOTAL 0.2 MG/DL (0.2-1.0); CREATININE FOR GFR 0.65 MG/DL (0.55-1.02); GLOMERULAR FILTRATION RATE > 60.0 (>60); URIC ACID 4.1 MG/DL (2.6-6.0)
[2017-05-12] MEDS ORDERED: ACETAMINOPHEN 500 MG TAB PO PRN (15:15)
[2017-05-12 17:00] LABS: MEAN CORPUSCULAR HEMOGLOBIN 27.6 pg (27.0-33.0); MEAN CORPUSCULAR HGB CONC 33.7 g/dl (32.0-36.5); RED CELL DISTRIBUTION WIDTH 14.4 % (11.5-14.5); WHITE BLOOD COUNT 12.7 K/mm3 (4.0-10.0)
== END 2017-05-12 18:30 | disposition home or self-care (01) ==
LOC: M LDO 12:48
PROVIDERS: ATTEND Advanced Practice Midwife
DX: O26.893 Other specified pregnancy related conditions, third trimester (principal); O10.013 Pre-existing essential hypertension complicating pregnancy, third trimester; O99.213 Obesity complicating pregnancy, third trimester; Z3A.35 35 weeks gestation of pregnancy; Z88.8 Allergy status to other drugs, medicaments and biological substances
CPT/HCPCS: 36415; 59025; 82247; 82565; 82570; 83615; 84156; 84450; 84460; 84550; 85027; 86780; 86850; 86900; 86901; 96372; J0702

== ENCOUNTER → 2017-05-12 | Outpatient (REF) | payer MEDICAID | LOC: M LAB REF 10:43 | PROVIDERS: ATTEND Obstetrics & Gynecology | DX: O10.013 Pre-existing essential hypertension complicating pregnancy, third trimester (principal); Z3A.00 Weeks of gestation of pregnancy not specified ==

== ENCOUNTER 2017-05-13 14:14 | Outpatient (CLI) | payer MEDICAID ==
[~2017-05-13 14:14] MED LIST changes: -LABETALOL 100 MG TAB PO SCH; +METHY25TA PO
[2017-05-13 14:33] VITALS: BP 123/63
[2017-05-13] MEDS ORDERED: BETAMETHASONE SOLUSPAN 6MG/ML INJ 5ML (J0702) IM ONE (15:00)
== END 2017-05-13 15:21 | disposition home or self-care (01) ==
LOC: M LDO 14:14
PROVIDERS: ATTEND Obstetrics & Gynecology
DX: Z34.83 Encounter for supervision of other normal pregnancy, third trimester (principal); Z3A.35 35 weeks gestation of pregnancy; Z88.8 Allergy status to other drugs, medicaments and biological substances
CPT/HCPCS: 96372; J0702

== ENCOUNTER 2017-05-21 06:04 | Inpatient (IN) | payer MEDICAID, OTHER ==
[2017-05-21] VITALS (7 sets, daily range): BP systolic 123–148; BP diastolic 65–88
[~2017-05-21] VITALS: Ht 177.8 cm; Wt 150.0 kg
[2017-05-21 08:01] LABS: MEAN CORPUSCULAR HEMOGLOBIN 27.3 pg (27.0-33.0); MEAN CORPUSCULAR HGB CONC 33.7 g/dl (32.0-36.5); MEAN CORPUSCULAR VOLUME 81.1 fl (80.0-96.0); RED CELL DISTRIBUTION WIDTH 14.4 % (11.5-14.5); WHITE BLOOD COUNT 10.5 K/mm3 (4.0-10.0)
[2017-05-21] MEDS ORDERED: LABETALOL 100 MG TAB PO SCH (09:00)
[2017-05-21] MEDS: LR 1,000 ML IV SCH (09:55)
[2017-05-21] MEDS: miSOPROStol 50 MCG 1/2 TAB (S0191) PO SCH ×4 (09:55→23:47)
[2017-05-21 10:32] LABS: ALT/SGPT 27 U/L (12-78); AST/SGOT 20 U/L (15-37); BILIRUBIN,TOTAL 0.2 MG/DL (0.2-1.0); CREATININE FOR GFR 0.63 MG/DL (0.55-1.02); GLOMERULAR FILTRATION RATE > 60.0 (>60); URIC ACID 4.5 MG/DL (2.6-6.0)
--- NOTE | 2017-05-21 11:12 | REP ---
Clinical: Size greater than dates. Comparison: 05/05/2017. Findings: Examination demonstrates a single live intrauterine in cephalic presentation. motion is identified by technologist. Placenta is noted anteriorly and grade II without evidence for placenta previa or abruption. Amniotic fluid volume is normal. Cervix measures 3.3 cm in length and appears closed. No evidence for nuchal cord. Gestational age by first US 38 weeks 5 days with MURRAY 05/30/2017 . Gestational age by current measurements 40 weeks 0 days with MURRAY is 05/21/2017 . FHR equals 127 beats per minute. BPD 9.9 cm 40 weeks 4 days HC 35.0 cm 40 weeks 5 days AC 37.0 cm 41 weeks 0 days FL 8.0 cm 40 weeks 6 days HL 6.9 40 weeks 1 day HC/AC ratio 0.95 Estimated weight 4220 grams ( >97 percentile). Biophysical profile score equals 8/8. Amniotic fluid index 18.2 cm. Umbilical cord SD ratio equals 3.33 (1.60 - 2.60). Impression: 1. Single live advanced gestation in cephalic presentation demonstrating increased estimated weight in relation to age by first ultrasound. However, in reviewing further prior examinations growth and age has consistently been roughly 2 weeks ahead of the suspected age by first ultrasound. 2. SD ratio mildly elevated. Signed by Himanshu Manley MD 05/21/2017 09:15 A
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
[2017-05-21] MEDS: LABETALOL 100 MG TAB PO SCH ×2 (13:30→21:07)
[2017-05-21] MEDS ORDERED: ACETAMINOPHEN 500 MG TAB PO PRN (19:30)
[2017-05-21] MEDS ORDERED: raNITIdine SYRUP 150 MG/10 ML UDC PO SCH (22:30)
[2017-05-22] VITALS (53 sets, daily range): BP systolic 111–184; BP diastolic 57–99
[2017-05-22] MEDS: LR 1,000 ML IV SCH (06:02)
[2017-05-22] MEDS: LABETALOL 100 MG TAB PO SCH ×3 (07:43→21:01)
[2017-05-22] MEDS ORDERED: PENICILLIN G POTASSIUM IV 5 MU in D5W MINI-BAG PLUS 100 ML IV STA (08:36)
[2017-05-22] MEDS ORDERED: OXYTOCIN DRIP 30 UNITS in APPROPRIATE DILUENT 1 EA IV SCH (08:45)
[2017-05-22] MEDS ORDERED: PENICILLIN G POTASSIUM IV 5 MU in D5W MINI-BAG PLUS 100 ML IV ONE (09:00)
[2017-05-22] MEDS: FAMOTIDINE 20 MG TAB PO SCH ×2 (09:00→21:01)
[2017-05-22] MEDS ORDERED: BUTORPHANOL 2 MG/ML INJ (J0595) IV ONE (09:45)
[2017-05-22] MEDS ORDERED: PROMETHAZINE INJ 25 MG/ML VIAL (J2550) IV ONE (09:45)
[2017-05-22] MEDS: PENICILLIN G POTASSIUM IV 2.5 MU in D5W 100 ML IV SCH ×3 (12:55→20:58)
[2017-05-22] MEDS ORDERED: PENICILLIN G POTASSIUM IV 2.5 MU in D5W 100 ML IV SCH (13:00)
[2017-05-22] MEDS ORDERED: FENTANYL 2MCG/ML ROPIVACAINE 0.2% IN 0.9% NACL 200ML IVBAG As Ordered ONE (16:38)
[2017-05-22] MEDS ORDERED: EPIDURAL COMMENT XX SCH (18:15)
[2017-05-22] MEDS ORDERED: REFRIGERATOR IV KEYS XX PRN (18:15)
[2017-05-22] MEDS ORDERED: diphenhydrAMINE INJ 50MG/ML VIAL (J1200) IV PRN (18:15)
[2017-05-22] MEDS ORDERED: EPIDURAL/PCA KEYS XX PRN (18:15)
[2017-05-22] MEDS ORDERED: ePHEDrine SULFATE 25 MG/5 ML(5MG/ML) SYRINGE IV PRN (18:15)
[2017-05-22] MEDS ORDERED: ONDANSETRON 4MG/2ML VIAL (J2405) IV PRN (18:15)
[2017-05-22] MEDS ORDERED: LACTATED RINGER'S 1000 ML IV PRN (18:15)
[2017-05-22] MEDS ORDERED: FENTANYL/ROPIVACAINE/NACL BAG 200 ML EPIDURAL SCH (18:15)
[2017-05-22] MEDS ORDERED: NALOXONE INJ 0.4 MG/1 ML VIAL (J2310) IV PRN (18:15)
[2017-05-23] VITALS (24 sets, daily range): BP systolic 117–158; BP diastolic 57–98
[2017-05-23] MEDS: PENICILLIN G POTASSIUM IV 2.5 MU in D5W 100 ML IV SCH ×2 (00:57→04:55)
[2017-05-23] MEDS ORDERED: BICITRA 30ML SOLN UDC PO ONE (07:45)
[2017-05-23] MEDS ORDERED: ADACEL/BOOSTRIX VACCINE (DIPHTH/PERTUSS/ACELL/TETANUS)0.5ML SYR (90715) IM ONE (09:00)
[2017-05-23 10:41] LABS: CORD GAS ABE V -0.3; CORD GAS HCO3 V 24.9 MEQ/L; CORD GAS O2 SAT V 74.1 %; CORD GAS PCO2 V 42.9 mmHg; CORD GAS PH V 7.382 UNITS; CORD GAS PO2 V 30.6 mmHg; CORD GAS SBC V 23.5 MEQ/L; CORD GAS TCO2 V 26.2 MEQ/L
[2017-05-23] MEDS ORDERED: fentaNYL 100 MCG/2 ML INJECTION (J3010) As Ordered ONE ×2 (10:46→11:21)
[2017-05-23] MEDS ORDERED: ONDANSETRON 4MG/2ML VIAL (J2405) As Ordered ONE (10:46)
[2017-05-23] MEDS ORDERED: OXYTOCIN INJ 10 UNITS/ML VIAL (J2590) As Ordered ONE (10:46)
[2017-05-23] MEDS ORDERED: dexameTHASONE 4 MG/ML 1ML VIAL (J1100) As Ordered ONE (10:46)
[2017-05-23] MEDS ORDERED: KETAMINE HCL 200 MG/20 ML VIAL As Ordered ONE (10:46)
[2017-05-23] MEDS ORDERED: GLYCOPYRROLATE INJ 0.2 MG/ML 2 ML VIAL As Ordered ONE (10:46)
[2017-05-23] MEDS ORDERED: NEOSTIGMINE 10 MG/10 ML VIAL (J2710) As Ordered ONE (10:46)
[2017-05-23] MEDS ORDERED: SUCCINYLCHOLINE 100 MG/5 ML SYRINGE (J0330) As Ordered ONE (10:46)
[2017-05-23] MEDS ORDERED: MORPHINE PRES-FREE INJ 10 MG/10 ML VIAL (J2274) As Ordered ONE (10:47)
[2017-05-23] MEDS ORDERED: MEASLES,MUMPS,RUBELLA VACCINE INJ (MMR-II) (90707) SC SCH (11:15)
[2017-05-23] MEDS ORDERED: ONDANSETRON 4MG/2ML VIAL (J2405) IV PRN ×2 (11:15→11:45)
[2017-05-23] MEDS ORDERED: DOCUSATE SODIUM 100 MG CAP PO PRN (11:15)
[2017-05-23] MEDS ORDERED: OXYTOCIN DRIP 30 UNITS in APPROPRIATE DILUENT 1 EA IV ONE (11:15)
[2017-05-23] MEDS ORDERED: MORPHINE 4 MG/ML 1ML SYRINGE IV PRN (11:15)
[2017-05-23] MEDS ORDERED: RHOGAM 300 MCG (1500 IU) INJ (J2790) IM SCH (11:15)
[2017-05-23] MEDS: fentaNYL 100 MCG/2 ML INJECTION (J3010) IV PRN ×4 (11:25→11:40)
[2017-05-23] MEDS ORDERED: PERCOCET 5MG/325MG TAB PO PRN (11:45)
[2017-05-23] MEDS ORDERED: LR 1,000 ML IV SCH (11:45)
[2017-05-23] MEDS ORDERED: PERCOCET 5MG/325MG TAB As Ordered ONE (11:51)
[2017-05-23] MEDS ORDERED: KETOROLAC 30 MG/ML VIAL (J1885) IV SCH (12:00)
[2017-05-23] MEDS: LR 1,000 ML IV SCH ×2 (13:31→19:04)
[2017-05-23] MEDS ORDERED: miSOPROStol 200 MCG TAB (S0191) PR ONE (14:00)
[2017-05-23] MEDS ORDERED: ROCURONIUM BROMIDE 50 MG/5 ML VIAL/SYRINGE As Ordered ONE (14:36)
[2017-05-23] MEDS ORDERED: KETOROLAC 60 MG/2 ML VIAL (J1885) As Ordered ONE (14:36)
[2017-05-23] MEDS ORDERED: MIDAZOLAM INJ 2 MG/2 ML VIAL (J2250) As Ordered ONE (14:36)
[2017-05-23] MEDS ORDERED: PROPOFOL 200 MG/20 ML VIAL As Ordered ONE (14:36)
[2017-05-23] MEDS ORDERED: LIDOCAINE 2% W/EPIN INJ 20ML **PRES FREE As Ordered ONE (14:36)
[2017-05-23] MEDS ORDERED: SODIUM BICARBONATE 8.4% INJ 50 ML SYRINGE As Ordered ONE (14:40)
[2017-05-23] MEDS: KETOROLAC 30 MG/ML VIAL (J1885) IV SCH ×2 (15:45→21:21)
[2017-05-23] MEDS: PERCOCET 5MG/325MG TAB PO PRN (17:33)
[2017-05-23] MEDS: FAMOTIDINE 20 MG TAB PO SCH (21:20)
[2017-05-23] MEDS: LABETALOL 100 MG TAB PO SCH (21:20)
[2017-05-24 02:00] VITALS: BP 127/70
[2017-05-24] MEDS: LR 1,000 ML IV SCH ×3 (03:04→19:04)
[2017-05-24] MEDS: KETOROLAC 30 MG/ML VIAL (J1885) IV SCH ×2 (04:44→09:13)
--- NOTE | 2017-05-24 05:39 | RO ---
DATE OF PROCEDURE: 05/23/2017 PREPROCEDURE DIAGNOSES: 37 plus weeks, chronic hypertension, arrest of dilation. POSTPROCEDURE DIAGNOSES: 37 plus weeks, chronic hypertension, arrest of dilation. PROCEDURE: Primary low transverse section. SURGEON: Dr. Armani Nj. FIRER POWERHOUSE: Dr. Bruno Mart. ANESTHESIA: General endotracheal. ESTIMATED BLOOD LOSS: 800 mL. FINDINGS: 8 pound 11 ounce male . Clear amniotic fluid. 9 and 9. Normal uterus, fallopian tubes and ovaries. OPERATIVE SUMMARY: The patient was taken to the operating room where attempt was made to obtain spinal anesthesia. Once this was unsuccessful, there was an attempt at epidural anesthesia. The patient was laid in supine position. Epidural anesthesia was not adequate. Decision was made to convert to general. The patient was prepped and draped in a sterile fashion in the supine position. Once general anesthesia was obtained, a Pfannenstiel skin incision was made with a scalpel and carried through to the fascia. The fascia was nicked and extended. Peritoneal cavity was entered. Curvilinear incision was made in the lower uterine segment until clear fluid was noted. This was extended manually. The was delivered from vertex position without difficulty. The cried spontaneously. The cord was doubly clamped and cut. The was handed off to the awaiting survival specialist. The placenta was expressed. The uterus was exteriorized and cleared of clots and debris. Uterine incision was closed with #0 Vicryl in a running locked fashion. A second imbricating layer of #0 Vicryl was placed. The uterus was placed back in the abdominal cavity. Good hemostasis was noted. The peritoneum was closed with #2-0 Vicryl in a running fashion. The fascia was closed with #0 Vicryl. The deep layer was irrigated and closed with #3-0 Chromic. The skin was closed with #4-0 Monocryl subcuticular sutures. Sponge, instrument, needle counts were correct. The patient received 800 mcg Cytotec per rectum at the end of the case to ensure uterine tone.
[2017-05-24 06:00] VITALS: BP 129/75
[2017-05-24 07:34] LABS: MEAN CORPUSCULAR HGB CONC 32.7 g/dl (32.0-36.5); MEAN CORPUSCULAR VOLUME 82.7 fl (80.0-96.0); RED CELL DISTRIBUTION WIDTH 15.1 % (11.5-14.5); WHITE BLOOD COUNT 14.6 K/mm3 (4.0-10.0)
[2017-05-24] MEDS: PRENATAL VITAMINS CHEWABLE TABLET PO SCH (08:31)
[2017-05-24] MEDS: LABETALOL 100 MG TAB PO SCH ×3 (08:32→21:10)
[2017-05-24] MEDS: FAMOTIDINE 20 MG TAB PO SCH ×2 (09:12→21:11)
[2017-05-24] MEDS: PERCOCET 5MG/325MG TAB PO PRN ×2 (09:14→16:52)
[2017-05-24 10:00] VITALS: BP 123/74
[2017-05-24] MEDS ORDERED: SLF 3 ML SYR IV PRN (13:45)
[2017-05-24] MEDS: SLF 3 ML SYR IV SCH ×2 (14:06→22:00)
[2017-05-24 14:33] VITALS: BP 140/81
[2017-05-24] MEDS ORDERED: OXYC1TAB23 PO (16:55)
[2017-05-24] MEDS: IBUPROFEN 800 MG TAB PO SCH (17:54)
[2017-05-24 17:59] VITALS: BP 152/64
[2017-05-24 22:00] VITALS: BP 125/60
[2017-05-25] VITALS (7 sets, daily range): BP systolic 107–131; BP diastolic 58–71
[2017-05-25] MEDS: IBUPROFEN 800 MG TAB PO SCH ×3 (01:18→17:58)
[2017-05-25] MEDS: PERCOCET 5MG/325MG TAB PO PRN ×2 (01:19→14:19)
[2017-05-25] MEDS: LR 1,000 ML IV SCH (03:04)
[2017-05-25] MEDS: SLF 3 ML SYR IV SCH (04:48)
[2017-05-25] MEDS ORDERED: ADACEL/BOOSTRIX VACCINE (DIPHTH/PERTUSS/ACELL/TETANUS)0.5ML SYR (90715) IM ONE (09:00)
[2017-05-25] MEDS: LABETALOL 100 MG TAB PO SCH ×3 (09:09→21:12)
[2017-05-25] MEDS: PRENATAL VITAMINS CHEWABLE TABLET PO SCH (09:10)
[2017-05-25] MEDS: FAMOTIDINE 20 MG TAB PO SCH ×2 (09:10→21:12)
[2017-05-26] MEDS: IBUPROFEN 800 MG TAB PO SCH ×3 (00:58→17:03)
[2017-05-26] MEDS: PERCOCET 5MG/325MG TAB PO PRN ×3 (00:58→17:08)
[2017-05-26 02:31] VITALS: BP 136/73
[2017-05-26 05:45] VITALS: BP 117/59
[2017-05-26] MEDS: LABETALOL 100 MG TAB PO SCH ×3 (09:39→21:44)
[2017-05-26] MEDS: PRENATAL VITAMINS CHEWABLE TABLET PO SCH (09:39)
[2017-05-26] MEDS: FAMOTIDINE 20 MG TAB PO SCH ×2 (09:39→21:45)
--- NOTE | 2017-05-26 12:47 | DSES ---
DATE OF ADMISSION: 05/21/2017 DATE OF DISCHARGE: HISTORY: A 26-year-old G1 female at 37-1/7 weeks' gestation, admitted for labor induction and chronic hypertension. She was maintained on two different antihypertensives during the . Her medications included both labetalol and Aldomet. The patient admitted on 05/21/2017. Her labor induction was commenced. She made slow progress in labor. Cook intracervical Parrish catheter was subsequently placed. The patient progressed to 4-5 cm and never made further progress. On 05/23/2017, the patient was diagnosed with arrest of dilation. A section was performed under general anesthesia for an 8-pound 11-ounces male infant. There were no complications of the procedure. Postoperative course was remarkable only for bruising of the skin around her lumbar spine due to repeated attempts at spinal anesthesia. Her blood pressure was stable on the labetalol. She had adequate return of bladder and bowel function. She is deemed stable for discharge on postoperative day #3. ADMISSION DIAGNOSIS: 1. at 37 weeks. 2. Chronic hypertension. DISCHARGE DIAGNOSIS: Delivered. PROCEDURE: Primary low transverse section. DISPOSITION: The patient will followup with Dr. Nj in 2 weeks. She will continue labetalol blood pressure control. DEANNA
[2017-05-26 14:00] VITALS: BP 138/61
[2017-05-26 18:00] VITALS: BP 134/76
[2017-05-26 22:00] VITALS: BP 133/67
[2017-05-27] MEDS: PERCOCET 5MG/325MG TAB PO PRN (00:15)
[2017-05-27] MEDS: IBUPROFEN 800 MG TAB PO SCH ×2 (02:30→09:58)
[2017-05-27 02:45] VITALS: BP 145/68
[2017-05-27 06:07] VITALS: BP 137/74
[2017-05-27] MEDS ORDERED: MOTR200T44 PO (08:42)
[2017-05-27 09:57] VITALS: BP 136/88
[2017-05-27] MEDS: FAMOTIDINE 20 MG TAB PO SCH (09:57)
[2017-05-27] MEDS: PRENATAL VITAMINS CHEWABLE TABLET PO SCH (09:57)
[2017-05-27] MEDS: LABETALOL 100 MG TAB PO SCH (09:57)
== END 2017-05-27 10:35 | disposition home or self-care (01) | DRG 540 ==
LOC: M LDI 06:04 → M OBS 05-23 11:00
PROVIDERS: ADMIT Obstetrics & Gynecology; ATTEND Obstetrics & Gynecology
PROC: 10D00Z1 Extraction of Products of Conception, Low, Open Approach (ICD-10-PCS; principal; 2017-05-23 09:22)
DX: O10.02 Pre-existing essential hypertension complicating childbirth (principal); E66.01 Morbid (severe) obesity due to excess calories; O99.214 Obesity complicating childbirth; Z37.0 Single live birth; Z3A.37 37 weeks gestation of pregnancy; O62.0 Primary inadequate contractions

== ENCOUNTER 2017-12-27 08:51 | Day surgery (SDC) | payer OTHER ==
[2017-12-27] MEDS ORDERED: fentaNYL 100 MCG/2 ML INJECTION (J3010) As Ordered ×3 (09:22→12:10)
[2017-12-27] MEDS ORDERED: PROPOFOL 200 MG/20 ML VIAL As Ordered (09:22)
[2017-12-27] MEDS ORDERED: ROCURONIUM BROMIDE 50 MG/5 ML VIAL As Ordered ×2 (09:22→10:51)
[2017-12-27 09:23] LABS: HEMATOCRIT 37.8 % (36.0-47.0); HEMOGLOBIN 11.9 g/dl (12.0-15.5); MEAN CORPUSCULAR HEMOGLOBIN 24.5 pg (27.0-33.0); MEAN CORPUSCULAR HGB CONC 31.5 g/dl (32.0-36.5); MEAN CORPUSCULAR VOLUME 77.8 fl (80.0-96.0); PLATELET COUNT, AUTOMATED 351 10^3/uL (150-450); RED BLOOD COUNT 4.86 10^6/uL (4.00-5.40); RED CELL DISTRIBUTION WIDTH 17.1 % (11.5-14.5)
[2017-12-27] MEDS ORDERED: MIDAZOLAM INJ 2 MG/2 ML VIAL (J2250) As Ordered (09:23)
[2017-12-27 09:24] LABS: CONTROL LINE UCG INT CTR LINE PRESENT; URINE PREG TEST NEGATIVE (NEGATIVE)
[2017-12-27] MEDS: LR 1,000 ML IV ×3 (09:25→15:38)
[2017-12-27] MEDS ORDERED: ONDANSETRON 4MG/2ML VIAL (J2405) As Ordered ×2 (11:14)
[2017-12-27] MEDS ORDERED: dexameTHASONE 4 MG/ML 1ML VIAL (J1100) As Ordered ×2 (11:14)
[2017-12-27] MEDS: METHYLENE BLUE 0.5% (5MG/ML) 10 ML AMP (PROVAYBLUE)(Q9968 PER 1MG) As Ordered (11:45)
[2017-12-27] MEDS ORDERED: GLYCOPYRROLATE INJ 0.2 MG/ML 2 ML VIAL As Ordered ×2 (11:49)
[2017-12-27] MEDS ORDERED: KETOROLAC 60 MG/2 ML VIAL (J1885) As Ordered (11:51)
[2017-12-27] MEDS: BUPIVACAINE HCL 0.25% 10 ML VIAL As Ordered (11:53)
[2017-12-27] MEDS ORDERED: ONDANSETRON 4MG/2ML VIAL (J2405) IV ×2 (12:45)
[2017-12-27] MEDS: PERCOCET 5MG/325MG TAB PO ×3 (12:45→17:45)
[2017-12-27] MEDS ORDERED: PERCOCET 5MG/325MG TAB PO (12:45)
[2017-12-27] MEDS: fentaNYL 100 MCG/2 ML INJECTION (J3010) IV ×4 (12:45→13:00)
[2017-12-27] MEDS ORDERED: MORPHINE 4 MG/ML 1ML VIAL/SYRINGE (J2270) IV (12:45)
[2017-12-27] MEDS: KETOROLAC 30 MG/ML VIAL (J1885) IV (20:37)
[2017-12-27] MEDS: DOCUSATE SODIUM 100 MG CAP PO (20:37)
[2017-12-27] MEDS: LABETALOL 100 MG TAB PO (21:33)
[2017-12-28] MEDS: PERCOCET 5MG/325MG TAB PO ×2 (02:15→08:12)
[2017-12-28] MEDS: DOCUSATE SODIUM 100 MG CAP PO (08:11)
[2017-12-28] MEDS: LABETALOL 100 MG TAB PO (08:12)
== END 2017-12-28 08:45 | disposition home or self-care (01) ==
LOC: M SDC 08:51 → M MSPAV 13:46
DX: N92.0 Excessive and frequent menstruation with regular cycle (principal); N72 Inflammatory disease of cervix uteri; I10 Essential (primary) hypertension; K21.9 Gastro-esophageal reflux disease without esophagitis; Z79.899 Other long term (current) drug therapy; Z88.8 Allergy status to other drugs, medicaments and biological substances; F41.9 Anxiety disorder, unspecified; F17.210 Nicotine dependence, cigarettes, uncomplicated
CPT/HCPCS: 58570

== ENCOUNTER 2018-01-08 15:56 | Emergency (ER) | payer OTHER ==
[2018-01-08 16:53] LABS: HEMATOCRIT 35.2 % (36.0-47.0); HEMOGLOBIN 11.4 g/dl (12.0-15.5); MEAN CORPUSCULAR HEMOGLOBIN 25.2 pg (27.0-33.0); MEAN CORPUSCULAR HGB CONC 32.4 g/dl (32.0-36.5); MEAN CORPUSCULAR VOLUME 77.7 fl (80.0-96.0); PLATELET COUNT, AUTOMATED 394 10^3/uL (150-450); RED BLOOD COUNT 4.53 10^6/uL (4.00-5.40); RED CELL DISTRIBUTION WIDTH 17.5 % (11.5-14.5); WHITE BLOOD COUNT 9.2 10^3/uL (4.0-10.0)
[2018-01-08 17:03] LABS: INR 0.98; PROTHROMBIN TIME 13.1 SECONDS (12.4-14.5)
[2018-01-08 17:05] LABS: PARTIAL THROMBOPLASTIN TIME 29.2 SECONDS (26.8-37.9)
[2018-01-08 19:51] LABS: KETONE, URINE AUTO RFX NEGATIVE (NEGATIVE); LEUKOCYTE ESTERASE UR AUTO RFX NEGATIVE (NEGATIVE); MUCUS, URINE RFX SMALL (NEGATIVE); NITRITE, URINE AUTO RFX NEGATIVE (NEGATIVE); RBC, URINE AUTO RFX 1 /HPF (0-3); SPECIFIC GRAVITY UR AUTO RFX 1.019 (1.002-1.035); SQUAM EPITHELIAL CELL UR AURFX 1 /HPF (0-6); WBC, URINE AUTO RFX 0 /HPF (0-3)
[2018-01-08] MEDS ORDERED: OXYCODONE/APAP 5MG/325MG(BULK FOR ED) 1 TABLET PO (20:15)
== END 2018-01-08 20:19 | disposition home or self-care (01) ==
LOC: M ED 15:56
DX: N99.820 Postprocedural hemorrhage of a genitourinary system organ or structure following a genitourinary system procedure (principal); I10 Essential (primary) hypertension; E66.9 Obesity, unspecified; Z88.8 Allergy status to other drugs, medicaments and biological substances; Z79.899 Other long term (current) drug therapy
CPT/HCPCS: 76856

== ENCOUNTER → 2018-02-18 | Outpatient (REF) | payer OTHER ==
[2018-02-18 17:00] LABS: RHEUMATOID FACTOR QUANT < 10.0 IU/ML (<15.0)
[2018-02-18 17:09] LABS: CORTISOL BASELINE 4.7 UG/DL (4.3-22.4)
[2018-02-22 00:10] LABS: CYCLIC CITRULLINATED PEPTIDE 4 units (0-19)
[2018-02-22 00:10] LABS: ANTINUCLEAR ANTIBODIES DIRECT Negative (Negative); Lyme Disease IgG/IgM Antibodie <0.91 ISR (0.00-0.90); Lyme Disease IgM Ab Quantitati <0.80 index (0.00-0.79)
== END ==
LOC: M LAB REF 16:27
DX: M25.50 Pain in unspecified joint (principal); I10 Essential (primary) hypertension

== ENCOUNTER → 2018-04-11 | Outpatient (CLI) | payer OTHER | LOC: M ADAMS 13:20 | DX: M54.5 Low back pain (principal) | CPT/HCPCS: 72110 ==

== ENCOUNTER → 2018-05-26 | Outpatient (REF) | payer OTHER ==
[2018-05-27 10:16] LABS: RUBEOLA IgG ANTIBODY >300.0 AU/mL (Immune >29.9)
[2018-05-27 10:16] LABS: MUMPS VIRUS IgG ANTIBODY >300.0 AU/mL (Immune >10.9)
[2018-05-27 13:12] LABS: RUBELLA IgG QUALITATIVE >500.0 (IMMUNE)
== END ==
LOC: M LAB REF 12:55
DX: Z02.1 Encounter for pre-employment examination (principal)
CPT/HCPCS: 86762

== ENCOUNTER → 2018-09-23 | Outpatient (REF) | payer OTHER ==
[~2018-09-23] MED LIST changes: +FERR324T2 PO; +IBUP-1022 PO; +IBUP80TA PO; +LEXA1TAB PO; +MOTR200T44 PO; +OXYC1TAB23 PO
[2018-09-23 18:01] LABS: PERCENT SATURATION 16.5 % (13.2-45.0)
== END ==
LOC: M LAB REF 16:39
PROVIDERS: ATTEND Internal Medicine
DX: D50.9 Iron deficiency anemia, unspecified (principal)

== ENCOUNTER 2018-11-12 09:34 | Emergency (ER) | payer OTHER, MEDICAID ==
[~2018-11-12] VITALS: Ht 180.3 cm; Wt 127.3 kg
[2018-11-12 09:39] VITALS: BP 123/72
[2018-11-12] MEDS ORDERED: PARO37.54 (09:44)
[2018-11-12] MEDS ORDERED: LOSARTAN/HCT (09:44)
[2018-11-12] MEDS ORDERED: AMLO2.5T3 (09:45)
[2018-11-12] MEDS ORDERED: ESTR1TAB (09:45)
[2018-11-12] MEDS ORDERED: VENL37.598 (09:45)
[2018-11-12 10:32] LABS: INFLUENZA A AMPLIFICATION NEGATIVE (NEGATIVE); INFLUENZA B AMPLIFICATION NEGATIVE (NEGATIVE)
[2018-11-12] MEDS ORDERED: OSEL75CA PO (10:38)
== END 2018-11-12 10:42 | disposition home or self-care (01) ==
LOC: M ED 09:34
DX: J02.9 Acute pharyngitis, unspecified (principal); Z20.828 Contact with and (suspected) exposure to other viral communicable diseases; I10 Essential (primary) hypertension; R51 Headache; F41.9 Anxiety disorder, unspecified; Z88.8 Allergy status to other drugs, medicaments and biological substances; Z79.899 Other long term (current) drug therapy

== ENCOUNTER → 2018-12-02 | Outpatient (REF) | payer OTHER, MEDICAID ==
[~2018-12-02] MED LIST changes: +AMLO2.5T3; +ESTR1TAB; +LOSARTAN/HCT; +OSEL75CA PO; +PARO37.54; +VENL37.598
== END ==
LOC: M LAB REF 16:59
PROVIDERS: ATTEND Nurse Practitioner Family
DX: M79.671 Pain in right foot (principal)

== ENCOUNTER 2019-02-08 07:11 | Day surgery (SDC) | payer OTHER ==
[~2019-02-08] VITALS: Ht 177.8 cm; Wt 147.4 kg
[~2019-02-08 07:11] MED LIST changes: -AMLO2.5T3; +AMLO2.5T3 PO; -ESTR1TAB; +ESTR1TAB PO; -LOSARTAN/HCT; +LOSARTAN/HCT PO; +LR 1,000 ML IV ONE; -PARO37.54; +PARO37.54 PO
[2019-02-08] MEDS ORDERED: BUPIVACAINE HCL 0.5% 10 ML VIAL As Ordered ONE (07:24)
[2019-02-08] MEDS ORDERED: LIDOCAINE 1% MDV 20ML VIAL As Ordered ONE (07:24)
[2019-02-08] MEDS ORDERED: dexameTHASONE 4 MG/ML 1ML VIAL (J1100) As Ordered ONE (07:24)
[2019-02-08] MEDS ORDERED: MIDAZOLAM INJ 2 MG/2 ML VIAL (J2250) As Ordered ONE (07:44)
[2019-02-08] MEDS ORDERED: fentaNYL 100 MCG/2 ML INJECTION (J3010) As Ordered ONE (07:44)
[2019-02-08] MEDS ORDERED: LIDOCAINE 2% INJ 100 MG/5 ML SDV (FOR ANES.) As Ordered ONE (07:45)
[2019-02-08] MEDS ORDERED: PROPOFOL 200 MG/20 ML VIAL As Ordered ONE ×4 (07:45→09:44)
[2019-02-08] MEDS ORDERED: ONDANSETRON 4MG/2ML VIAL (J2405) As Ordered ONE (07:45)
[2019-02-08] MEDS ORDERED: KETAMINE HCL 200 MG/20 ML VIAL As Ordered ONE (08:48)
[2019-02-08] MEDS ORDERED: KETOROLAC 60 MG/2 ML VIAL (J1885) As Ordered ONE (09:12)
[2019-02-08] MEDS ORDERED: HYDR-3713 PO (10:01)
[2019-02-08] MEDS ORDERED: NORCO, ANEXSIA 5/325MG TABLET (HYDROcodone/ACETAMINOPHEN) As Ordered ONE (10:08)
[2019-02-08] MEDS ORDERED: ONDANSETRON 4MG/2ML VIAL (J2405) IV PRN (10:45)
[2019-02-08] MEDS ORDERED: LR 1,000 ML IV SCH (10:45)
[2019-02-08] MEDS ORDERED: NORCO, ANEXSIA 5/325MG TABLET (HYDROcodone/ACETAMINOPHEN) PO PRN (10:45)
[2019-02-08 11:00] VITALS: BP 137/83
--- NOTE | 2019-02-08 12:13 | RO ---
DATE OF SURGERY: 02/08/2019 PREOPERATIVE DIAGNOSIS: Right foot bunion. POSTOPERATIVE DIAGNOSIS: Right foot bunion. PROCEDURE: Right bunionectomy with 1st metatarsal osteotomy. SURGEON: Dimas Esposito DPM MATERIAL PREPARATION WORKER: None. ANESTHESIA: Monitored anesthesia care with preoperative injection of 20 mL of 1:1 mixture of 1% lidocaine plain, 0.5% Marcaine plain. ESTIMATED BLOOD LOSS: Minimum. MATERIALS: Arthrex 3.5 headless compression screws with #3-0 and #4-0 Vicryl, #4-0 nylon. INJECTABLES: 1 mL Decadron, 4 mg/mL. COMPLICATIONS: None. CONDITION: Stable. Sarah Pope is a 28-year-old female who presents to [facility], [place] with complaints of painful right bunion. She presents today for surgical correction. Patient, side, and site were identified and marked in preoperative holding area. Consent was reviewed and obtained. Risks, complications, and alternatives to the procedure were explained to the patient in detail, and all questions were answered. DESCRIPTION OF PROCEDURE: Patient was brought to the operating room, placed on the operating room table in supine position. Monitored anesthesia care was delivered by the anesthesia team. Preoperative injection of 20 mL of 1:1 mixture 1% lidocaine plain and 0.5% Marcaine plain were injected in the right foot. The right foot was prepped and draped in normal sterile fashion. Tourniquet was applied to the right ankle and inflated to 250 mmHg. Patient received Ancef preoperatively. Dorsal medial incision was drawn and carried through with a #15 blade. Dissection was carried until the metatarsal phalangeal capsule was identified. Bovie was used to cauterize all bleeding vessels along the way. T-capsulotomy was performed exposing the metatarsal head. Following this, a lateral release was performed releasing the adductor tendon, lateral capsule, and sesamoidal ligaments. Plantar surfaces were released with McGlamry elevator. Following this, the medial eminence was resected with sagittal saw, and osteotomy was performed of the metatarsal head transposing it laterally. This was fixated with Arthrex 3.5 headless compression screw. Remaining bone ledge resected with sagittal saw, smoothed with a rasp. Site was irrigated with normal saline. Small wedge of capsule was removed from the medial capsule and then capsular repair was performed with #3-0 Vicryl, subcutaneous closure with #4-0 Vicryl, and skin closure with #4-0 nylon. Sterile dressings were applied. Tourniquet was deflated. Patient was brought to post anesthesia care unit (PACU) with vital signs stable and neurovascular status intact. She will be partial weightbearing. She will followup in the office in 2 days.
== END 2019-02-08 11:11 | disposition home or self-care (01) ==
LOC: M SDC 07:11
PROVIDERS: ATTEND Podiatrist Foot & Ankle Surgery
DX: M21.611 Bunion of right foot (principal); I10 Essential (primary) hypertension; K21.9 Gastro-esophageal reflux disease without esophagitis; F41.9 Anxiety disorder, unspecified; Z79.899 Other long term (current) drug therapy; Z88.8 Allergy status to other drugs, medicaments and biological substances; F17.210 Nicotine dependence, cigarettes, uncomplicated
CPT/HCPCS: 28296; 88300; 97116; 97530; C1713; J0690; J1100; J1885; J2250; J2405; J3010

== ENCOUNTER → 2019-03-15 | Outpatient (REF) | payer OTHER ==
[~2019-03-15] MED LIST changes: +HYDR-3713 PO; -LR 1,000 ML IV ONE
== END ==
LOC: M LAB REF 13:10 → EEVIPCON 13:10
PROVIDERS: ATTEND Podiatrist Foot & Ankle Surgery
DX: L03.031 Cellulitis of right toe (principal); M21.611 Bunion of right foot; Z48.89 Encounter for other specified surgical aftercare

== ENCOUNTER 2019-04-11 10:10 | Emergency (ER) | payer OTHER ==
[~2019-04-11] VITALS: Ht 180.3 cm; Wt 113.6 kg
[~2019-04-11 10:10] MED LIST changes: +RANI-397 PO; -RANI1TAB6 PO
[2019-04-11] MEDS ORDERED: METH4TAB8 (11:19)
[2019-04-11] MEDS ORDERED: DOXY100C37 (11:19)
[2019-04-11] MEDS ORDERED: FLUC150T (11:19)
[2019-04-11 11:58] LABS: BASO # 0.1 10^3/uL (0.0-0.2); BASO % 0.9 % (0.0-1.0); EOS # 0.2 10^3/uL (0.0-0.50); EOS % 2.6 % (0.0-3.0); HEMATOCRIT 40.5 % (36.0-47.0); HEMOGLOBIN 13.3 g/dl (12.0-15.5); LYMPH # 2.2 10^3/uL (1.5-6.5); LYMPH % 26.9 % (24.0-44.0); MEAN CORPUSCULAR HEMOGLOBIN 27.8 pg (27.0-33.0); MEAN CORPUSCULAR HGB CONC 32.8 g/dl (32.0-36.5); MEAN CORPUSCULAR VOLUME 84.6 fl (80.0-96.0); MONO # 0.6 10^3/uL (0.0-0.8); MONO % 6.9 % (0.0-5.0); NEUTROPHILS % 62.5 % (36.0-66.0); PLATELET COUNT, AUTOMATED 359 10^3/uL (150-450); RED BLOOD COUNT 4.79 10^6/uL (4.00-5.40)
[2019-04-11] MEDS ORDERED: NS 1,000 ML IV ONE (12:15)
[2019-04-11] MEDS ORDERED: ONDANSETRON 4MG/2ML VIAL (J2405) IV ONE (12:15)
[2019-04-11 12:20] LABS: ALBUMIN 3.6 GM/DL (3.2-5.2); BILIRUBIN,DIRECT 0.1 MG/DL (0.0-0.2); BILIRUBIN,TOTAL 0.4 MG/DL (0.2-1.0); TOTAL PROTEIN 6.9 GM/DL (6.4-8.2)
[2019-04-11 12:29] LABS: C REACTIVE PROTEIN QUANTITATIV 1.56 MG/DL (0.00-0.30)
[2019-04-11 12:54] LABS: ERYTHROCYTE SEDIMENTATION RATE 5 mm/hr (0-20)
--- NOTE | 2019-04-11 13:20 | REP ---
Clinical: Postoperative pain. Technique: AP, lateral, bilateral oblique views of the right foot. Findings: Evidence for prior surgical procedure involving the first metatarsal. Alignment is maintained. No acute fracture. No significant periosteal reaction or findings to suggest osteomyelitis by radiographic evaluation. Remainder examination appears normal. Impression: Postoperative changes involving the first metatarsal bone. Otherwise normal examination. Electronically Signed by Himanshu Manley MD 04/11/2019 01:11 P
[2019-04-11] MEDS ORDERED: MORPHINE 4 MG/ML 1ML VIAL/SYRINGE (J2270) IV ONE (14:00)
[2019-04-11] MEDS ORDERED: ISOVUE-370 76% 100ML VIAL (Q9967) As Ordered ONE (14:10)
--- NOTE | 2019-04-11 14:42 | REP ---
Clinical: Acute lower abdominal pain. Technique: Axial contrast enhanced images from the lung bases to the pubic symphysis with coronal and sagittal re-formations using 100 ml Isovue 370 intravenous contrast material. Comparison: None. Findings: Lung bases are clear. Visualized heart and pericardium normal. Liver, spleen, pancreas, gallbladder, bilateral adrenal glands and kidneys are normal. The enteric system is without obstruction or acute inflammatory process. Normal terminal ileum and appendix identified in the right lower quadrant. Pelvis demonstrates normal bladder and evidence of prior hysterectomy. No ascites. No free air. No adenopathy. Abdominal aorta without aneurysm. Musculoskeletal structures without focal osseous abnormality. Impression: No acute abdominopelvic pathology appreciated. Electronically Signed by Himanshu Manley MD 04/11/2019 02:34 P
[2019-04-11] MEDS ORDERED: ONDA4TAB6 PO (15:22)
[2019-04-11 15:33] VITALS: BP 140/69
[2019-06-08] MEDS ORDERED: LOSA100T8 PO (09:11)
== END 2019-04-11 15:36 | disposition home or self-care (01) ==
LOC: M ED 10:10
DX: M25.571 Pain in right ankle and joints of right foot (principal); R19.7 Diarrhea, unspecified; R11.0 Nausea; Z98.890 Other specified postprocedural states; I10 Essential (primary) hypertension; Z72.0 Tobacco use; Z88.8 Allergy status to other drugs, medicaments and biological substances; Z88.3 Allergy status to other anti-infective agents; Z79.899 Other long term (current) drug therapy; Z79.2 Long term (current) use of antibiotics; Z79.890 Hormone replacement therapy
CPT/HCPCS: 73630; 74177; 80047; 80076; 83605; 83690; 85025; 85652; 86140; 87040; 96374; 96375; 99284; J2270; J2405; Q9967

== ENCOUNTER → 2019-05-03 | Outpatient (CLI) | payer OTHER ==
[~2019-05-03] MED LIST changes: +DOXY100C37; +FLUC150T; +METH4TAB28; +ONDA4TAB6 PO; -RANI-397 PO; +RANI1TAB6 PO
[2019-05-03 18:06] LABS: BASO # 0.1 10^3/uL (0.0-0.2); BASO % 0.7 % (0.0-1.0); EOS # 0.2 10^3/uL (0.0-0.50); EOS % 2.5 % (0.0-3.0); HEMATOCRIT 42.1 % (36.0-47.0); HEMOGLOBIN 13.9 g/dl (12.0-15.5); LYMPH % 32.7 % (24.0-44.0); MEAN CORPUSCULAR HEMOGLOBIN 28.7 pg (27.0-33.0); MEAN CORPUSCULAR VOLUME 86.8 fl (80.0-96.0); MONO # 0.6 10^3/uL (0.0-0.8); NEUTROPHILS # 5.1 10^3/uL (1.8-7.7); NEUTROPHILS % 56.7 % (36.0-66.0); PLATELET COUNT, AUTOMATED 382 10^3/uL (150-450); RED BLOOD COUNT 4.85 10^6/uL (4.00-5.40); WHITE BLOOD COUNT 9.1 10^3/uL (4.0-10.0)
[2019-05-03 19:56] LABS: ERYTHROCYTE SEDIMENTATION RATE 6 mm/hr (0-20)
== END ==
LOC: M WUC 12:20
PROVIDERS: ATTEND Podiatrist Foot & Ankle Surgery
DX: L03.90 Cellulitis, unspecified (principal)

== ENCOUNTER 2019-06-14 11:01 | Day surgery (SDC) | payer OTHER ==
[~2019-06-14] VITALS: Ht 180.3 cm; Wt 153.9 kg
[~2019-06-14 11:01] MED LIST changes: +LIDOCAINE 1% MDV 20ML VIAL SQ PRN; +LOSA100T8 PO; +LR 1,000 ML IV ONE; +RANI-356 PO; -RANI1TAB6 PO; +VANCOMYCIN HCL 1,000 MG, VIAL MATE ADAPTER 1 EACH in D5W 250 ML IV ONE
[2019-06-14] MEDS ORDERED: LIDOCAINE 2% INJ 100 MG/5 ML SDV (FOR ANES.) As Ordered ONE (11:34)
[2019-06-14] MEDS ORDERED: PROPOFOL 200 MG/20 ML VIAL As Ordered ONE ×3 (11:34→12:39)
[2019-06-14] MEDS ORDERED: KETOROLAC 60 MG/2 ML VIAL (J1885) As Ordered ONE (11:36)
[2019-06-14] MEDS ORDERED: ONDANSETRON 4MG/2ML VIAL (J2405) As Ordered ONE (11:36)
[2019-06-14] MEDS ORDERED: dexameTHASONE 4 MG/ML 1ML VIAL (J1100) As Ordered ONE ×2 (11:36→14:35)
[2019-06-14] MEDS ORDERED: fentaNYL 100 MCG/2 ML INJECTION (J3010) As Ordered ONE (12:21)
[2019-06-14] MEDS ORDERED: MIDAZOLAM INJ 2 MG/2 ML VIAL (J2250) As Ordered ONE (12:21)
[2019-06-14] MEDS ORDERED: OXYC1TAB23 PO (14:24)
[2019-06-14] MEDS ORDERED: oxyCODONE 5MG TAB As Ordered ONE (14:35)
[2019-06-14] MEDS ORDERED: BUPIVACAINE HCL 0.5% 30 ML VIAL As Ordered ONE (14:35)
[2019-06-14] MEDS ORDERED: LIDOCAINE 1% MDV 20ML VIAL As Ordered ONE (14:35)
[2019-06-14] MEDS ORDERED: LR 1,000 ML IV SCH (15:00)
[2019-06-14] MEDS ORDERED: fentaNYL 100 MCG/2 ML INJECTION (J3010) IV PRN (15:00)
[2019-06-14] MEDS ORDERED: oxyCODONE 5MG TAB PO PRN (15:00)
[2019-06-14] MEDS ORDERED: ONDANSETRON 4MG/2ML VIAL (J2405) IV PRN (15:00)
[2019-06-14] MEDS ORDERED: METOCLOPRAMIDE INJ 10MG/2ML VIAL (J2765) IV PRN (15:00)
[2019-06-14 15:10] VITALS: BP 133/79
--- NOTE | 2019-06-14 16:03 | RO ---
DATE OF PROCEDURE: 06/14/2019 PREPROCEDURE DIAGNOSIS: Painful retained hardware right foot. POSTPROCEDURE DIAGNOSIS: Painful retained hardware right foot. PROCEDURE: Right foot screw removal. SURGEON: Dimas Esposito DPM HOME HOUSEKEEPER: None. ANESTHESIA: Monitored anesthesia care. Preoperative injection of 16 mL of 1:1 mixture of 1% lidocaine plain and 0.50% Marcaine plain. ESTIMATED BLOOD LOSS: Minimal. MATERIALS: #4-0 nylon. INJECTABLES: 1 mL Decadron 4 mg/mL. SPECIMEN: Right foot screw. COMPLICATIONS: None. CONDITION: Stable. Sarah Pope is a 28-year-old female who had bunion surgery in January of this year. She has had persisting swelling and pain despite good signs of healing and positioning on the x-rays. She initially had a skin infection following the surgery but this was cleared using oral antibiotics. Recent blood work showed no obvious indications of her persisting infection. The edema has not resolved despite antiinflammatory and steroid treatment. Decision was made to bring her to the operating room for removal of the screw as a possible potential cause of persisting swelling and pain as well as evaluation of the surgical area. Patient site and side were identified and marked in preoperative holding area. Consent was reviewed and obtained. All risks, complications, and alternatives to the procedure were explained to the patient in detail and all questions were answered. DESCRIPTION OF PROCEDURE: The patient was brought to the operating room and placed on the operating room in supine position. Monitored anesthesia care was delivered by the anesthesia team. Preoperative injection of 16 mL of 1:1 mixture of 1% lidocaine plain and 0.50% Marcaine plain were injected to the right foot. The right foot was prepped and draped in normal sterile fashion. The patient received vancomycin preoperatively. An incision was made along the previous scar line of the dorsal foot. Dissection was carried down to the metatarsal bone and the screw head were identified. There was no fluid noted. There was no purulence or anything abnormal other than the expected scar tissue in the dissection path. There was some bony overgrowth, which was removed using curette and the screw was removed using the Arthrex screwdriver. As a precaution, the screw was sent for culture to rule out any infection. The site was irrigated with normal saline. Incision was repaired with #4-0 nylon and 1 mL of Decadron was injected to the surg. Tourniquet was deflated. Sterile dressings were applied. The patient was brought to the postanesthesia care unit (PACU) with vital signs stable and neurovascular status intact. She will weightbearing as tolerated. She will followup in office in 2 days.
== END 2019-06-14 15:31 | disposition home or self-care (01) ==
LOC: M SDC 11:01
PROVIDERS: ATTEND Podiatrist Foot & Ankle Surgery
DX: T84.84XA Pain due to internal orthopedic prosthetic devices, implants and grafts, initial encounter (principal); M79.672 Pain in left foot; I10 Essential (primary) hypertension; K21.9 Gastro-esophageal reflux disease without esophagitis; E28.2 Polycystic ovarian syndrome; F17.210 Nicotine dependence, cigarettes, uncomplicated; Z88.8 Allergy status to other drugs, medicaments and biological substances; Z79.899 Other long term (current) drug therapy; F41.9 Anxiety disorder, unspecified; Y79.2 Prosthetic and other implants, materials and accessory orthopedic devices associated with adverse incidents
CPT/HCPCS: 20680; 87070; 87075; 87077; 87186; 87205; J1100; J1885; J2250; J2405; J3010; J3370

== ENCOUNTER → 2019-06-22 | Outpatient (REF) | payer OTHER ==
[~2019-06-22] MED LIST changes: +AMLO10TA5 PO; +FLUC100T PO; -LIDOCAINE 1% MDV 20ML VIAL SQ PRN; -LR 1,000 ML IV ONE; +PERCOCET PO; +SULF1TAB93 PO; -VANCOMYCIN HCL 1,000 MG, VIAL MATE ADAPTER 1 EACH in D5W 250 ML IV ONE
== END ==
LOC: M LAB REF 17:21
PROVIDERS: ATTEND Podiatrist Foot & Ankle Surgery
DX: L03.115 Cellulitis of right lower limb (principal)

== ENCOUNTER 2019-06-23 10:41 | Inpatient (IN) | payer OTHER ==
[~2019-06-23] VITALS: Ht 177.8 cm; Wt 154.4 kg
[~2019-06-23 10:41] MED LIST changes: -AMLO10TA5 PO; -FLUC100T PO; -PERCOCET PO; -SULF1TAB93 PO
[2019-06-23] MEDS ORDERED: SULF1TAB93 PO (10:56)
[2019-06-23] MEDS ORDERED: FLUC100T PO (10:56)
[2019-06-23] MEDS ORDERED: PARO37.54 PO (10:56)
[2019-06-23] MEDS ORDERED: VANCOMYCIN HCL 1,000 MG, VIAL MATE ADAPTER 1 EACH in D5W 250 ML IV ONE ×2 (11:30→22:45)
[2019-06-23] MEDS ORDERED: NS 1,000 ML IV ONE (11:30)
[2019-06-23 11:47] LABS: BASO # 0.1 10^3/uL (0.0-0.2); BASO % 0.7 % (0.0-1.0); EOS # 0.2 10^3/uL (0.0-0.5); EOS % 1.2 % (0.0-3.0); HEMATOCRIT 40.9 % (36.0-47.0); HEMOGLOBIN 13.7 g/dl (12.0-15.5); LYMPH # 2.3 10^3/uL (1.5-5.0); LYMPH % 18.8 % (24.0-44.0); MEAN CORPUSCULAR HEMOGLOBIN 28.3 pg (27.0-33.0); MEAN CORPUSCULAR HGB CONC 33.5 g/dl (32.0-36.5); MEAN CORPUSCULAR VOLUME 84.5 fl (80.0-96.0); MONO # 0.8 10^3/uL (0.0-0.8); MONO % 6.2 % (0.0-5.0); NEUTROPHILS % 72.9 % (36.0-66.0); PLATELET COUNT, AUTOMATED 381 10^3/uL (150-450); RED BLOOD COUNT 4.84 10^6/uL (4.00-5.40); WHITE BLOOD COUNT 12.3 10^3/uL (4.0-10.0)
[2019-06-23] MEDS ORDERED: AMLO10TA5 PO (11:47)
[2019-06-23] MEDS ORDERED: ONDA4TAB6 PO (11:47)
[2019-06-23 12:05] LABS: BLOOD UREA NITROGEN 8 MG/DL (7-18); CARBON DIOXIDE LEVEL 27 MEQ/L (21-32); CHLORIDE LEVEL 105 MEQ/L (98-107); CREATININE FOR GFR 0.89 MG/DL (0.55-1.30); GLOMERULAR FILTRATION RATE > 60.0 (>60); GLUCOSE, FASTING 83 MG/DL (70-100); POTASSIUM SERUM 3.8 MEQ/L (3.5-5.1); SODIUM LEVEL 139 MEQ/L (136-145)
--- NOTE | 2019-06-23 12:22 | REP ---
Right lower extremity deep vein duplex ultrasound for thrombus: The deep veins demonstrate normal compression, normal Doppler color flow and normal Doppler waveforms with respiration and augmentation from the popliteal vein to the common femoral vein. Impression: There is no right lower extremity deep vein thrombus. Electronically Signed by Killian Tse MD 06/23/2019 12:15 P
[2019-06-23] MEDS ORDERED: ACETAMINOPHEN 325 MG TAB PO ONE (12:30)
[2019-06-23] MEDS ORDERED: ONDANSETRON 4MG/2ML VIAL (J2405) IV ONE (12:30)
[2019-06-23] MEDS ORDERED: diphenhydrAMINE 25 MG CAP PO ONE (12:45)
[2019-06-23 12:58] LABS: C REACTIVE PROTEIN QUANTITATIV 8.78 MG/DL (0.00-0.30)
[2019-06-23 13:12] LABS: ERYTHROCYTE SEDIMENTATION RATE 11 mm/hr (0-20)
[2019-06-23] MEDS ORDERED: ISOVUE-370 76% 100ML VIAL (Q9967) As Ordered ONE (13:41)
--- NOTE | 2019-06-23 14:22 | REP ---
CT right calf with IV contrast: History: Right lower extremity pain and erythema, rule out necrotizing fasciitis. No comparison radiographs. CT contrast dose: 100 mL of intravenous Isovue [address] findings: There is fairly diffuse soft tissue subcutaneous edema and skin thickening over the anteromedial aspect of the calf. In the anteromedial proximal calf soft tissues there is a nodular area of skin thickening which produces outward bowing of the overlying skin. These changes are compatible with cellulitis. No soft tissue gas is seen. Skeletal muscle compartments are unremarkable with no evidence of fascial edema or soft tissue gas seen. No bony destructive or erosive changes seen. No periosteal reaction is observed. Impression: Subcutaneous cellulitis pattern in the anteromedial and pretibial soft tissues. There is no abnormal fluid collection or soft tissue gas. No bony changes. Electronically Signed by Jaspal Gusman MD 06/23/2019 02:35 P
--- NOTE | 2019-06-23 14:36 | HPEPDOC ---
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 She also reports associated fever for the past few days, nausea, fatigue. She reports a history of MRSA infection, following surgery, feels this is similar. She denies any shortness of breath, chest pain, abdominal pain or diarrhea at this time. 10 point review of system was negative except for above PAST MEDICAL HISTORY: 1. Hypertension. 2. Anxiety/depression. PAST SURGICAL HISTORY: 1. Hysterectomy. 2. Bunionectomy. 3. Tonsillectomy. SOCIAL HISTORY: Marital status: . Children: 1 Employment: Employed Tobacco use:Never ETOH: Social Illicit drug use: Denies FAMILY HISTORY: No family history of malignancy or heart disease ALLERGIES: Please see below. HOME MEDICATIONS: Please see below. PHYSICAL EXAMINATION: CONSTITUTIONAL: No distress. HEENT: Normocephalic, atraumatic, moist mucous membranes. CARDIOVASCULAR: S1, S2, tachycardic. RESPIRATORY: Clear to auscultation. GASTROINTESTINAL: Soft, nontender, nondistended, positive bowel sounds. SKIN: Right lower extremity erythema, without clear borders, severe tenderness to palpation, warm to touch, no open lesions, no drainage noted. MUSCULOSKELETAL: Range of motion intact NEUROLOGICAL: Alert and oriented 3, no focal deficits. PSYCHIATRIC: Cooperative. LABORATORY DATA: See below. IMAGING: Lower extremity Doppler without DVT, CAT scan pending MICROBIOLOGY: Please see below. ASSESSMENT: 28-year-old female with recent bunionectomy, removal of hardware one week ago, development of subsequent cellulitis, aggressively worsening, history of MRSA. . PLAN: 1. Cellulitis. Right lower extremity, progressively worsening, started on oral outpatient treatment yesterday. CT right lower extremity ordered with contrast, surgery consult placed. Empiric treatment with vancomycin, blood cultures pending. Maintenance IV fluids. 2. Hypertension. Continue home Norvasc, lisinopril and hydrochlorothiazide. 3. Anxiety/depression. Continue home Paxil. DVT prophylaxis: Heparin subcutaneous. GI prophylaxis: Not needed at this time Vital Signs Vital Signs Date Time Temp Pulse Resp B/P (MAP) Pulse Ox O2 Delivery O2 Flow Rate FiO2 06/23/19 12:30 96.9 70 16 157/80 (105) 97 06/23/19 10:42 Room Air Laboratory Data Labs 24H Laboratory Tests 2 06/23/19 11:36: Immature Granulocyte % (Auto) 0.2, White Blood Count 12.3H, Red Blood Count 4.84, Hemoglobin 13.7, Hematocrit 40.9, Mean Corpuscular Volume 84.5, Mean Corpuscular Hemoglobin 28.3, Mean Corpuscular Hemoglobin Concent 33.5, Red Cell Distribution Width 13.2, Platelet Count 381, Neutrophils (%) (Auto) 72.9H, Lymphocytes (%) (Auto) 18.8L, Monocytes (%) (Auto) 6.2H, Eosinophils (%) (Auto) 1.2, Basophils (%) (Auto) 0.7, Neutrophils # (Auto) 9.0H, Lymphocytes # (Auto) 2.3, Monocytes # (Auto) 0.8, Eosinophils # (Auto) 0.2, Basophils # (Auto) 0.1, Nucleated Red Blood Cells % (auto) 0.0, Erythrocyte Sedimentation Rate 11, Anion Gap 7L, Glomerular Filtration Rate > 60.0, Blood Urea Nitrogen 8, Creatinine 0.89, Sodium Level 139, Potassium Level 3.8, Chloride Level 105, Carbon Dioxide Level 27, Calcium Level 9.0, C-Reactive Protein, Quantitative 8.78H CBC/BMP Laboratory Tests 06/23/19 11:36 Red Blood Count 4.84, Mean Corpuscular Volume 84.5, Mean Corpuscular Hemoglobin 28.3, Mean Corpuscular Hemoglobin Concent 33.5, Red Cell Distribution Width 13.2, Neutrophils (%) (Auto) 72.9 H, Lymphocytes (%) (Auto) 18.8 L, Monocytes (%) (Auto) 6.2 H, Eosinophils (%) (Auto) 1.2, Basophils (%) (Auto) 0.7, Neutrophils # (Auto) 9.0 H, Lymphocytes # (Auto) 2.3, Monocytes # (Auto) 0.8, Eosinophils # (Auto) 0.2, Basophils # (Auto) 0.1, Calcium Level 9.0 Microbiology Microbiology 06/23/19 Blood Culture, Received Pending 06/23/19 Blood Culture, Received Pending Home Medications Scheduled Amlodipine Besylate (Amlodipine Besylate) 10 Mg Tablet, 10 MG PO DAILY Estradiol (Estradiol) 1 Mg Tab, 1 MG PO DAILY Fluconazole (Fluconazole) 100 Mg Tablet, 100 MG PO DAILY FOR 14 DAYS WHILE ON BACTRIM Losartan/Hydrochlorothiazide (Losartan-Hctz 100-12.5 mg Tab) 1 Each Tablet, 1 TAB PO DAILY Paroxetine HCl (Paroxetine ER) 37.5 Mg Tab.er.24h, 37.5 MG PO QHS Sulfamethoxazole/Trimethoprim (Sulfamethoxazole-Tmp Ds Tablet) 1 Each Tablet, 1 TAB PO BID FOR 14 DAYS STARTED 06/22/19 Scheduled PRN Ondansetron (Ondansetron Odt) 4 Mg Tab.rapdis, 4 MG PO Q6H PRN for NAUSEA OR VOMITING Allergies Coded Allergies: haloperidol (Verified Allergy, Intermediate, THRAOT AND TONGUE SWELLING, 06/14/19) chlorhexidine (Verified Allergy, Mild, ITCHY, 06/14/19) A-FIB/CHADSVASC A-FIB History Current/History of A-Fib/PAF?: No LEONRA QUINN MD Jun 23, 2019 14:36
[2019-06-23] MEDS: NS 1,000 ML IV SCH (14:47)
[2019-06-23 15:25] VITALS: BP 152/93
[2019-06-23] MEDS: HEPARIN SOD (PORCINE) 5000 UNITS/ML VIAL SC SCH ×2 (16:12→21:34)
[2019-06-23] MEDS ORDERED: PERCOCET 5MG/325MG TAB PO PRN (18:00)
[2019-06-23] MEDS ORDERED: ONDANSETRON 4 MG ORAL DISINTEGRATING TAB (Q0162 PER 1MG) PO PRN (18:00)
--- NOTE | 2019-06-23 18:18 | CR.PDOC ---
General Surgery Consultation Date of Consultation 06/23/19 History and Physical CONSULT REPORT FOR: hospitalist service REASON FOR CONSULTATION: right leg cellulitis HISTORY OF PRESENT ILLNESS: PAST MEDICAL HISTORY: 1. . PAST SURGICAL HISTORY: INCLUDES: 1. . PREVIOUS ANESTHESIA REACTIONS: ALLERGIES: Please see below. FAMILY HISTORY: . HOME MEDICATIONS: Please see below. REVIEW OF SYSTEMS: GENERAL: [Denies chills, reports weight gain, reports feeling febrile yesterday]. HEENT: [Denies blurred vision and double vision. Denies ear symptoms. Denies hoarseness]. NECK: Denies any neck pain]. CARDIOVASCULAR: [Denies chest pain and palpitations]. MUSCULOSKELETAL: [Denies arthralgias, back pain and thrombophlebitis]. SKIN: [Denies rash]. NEUROLOGIC: [Denies headache, stroke and transient ischemic attack]. PSYCHIATRIC: [Denies anxiety and depression]. ENDOCRINE: [Denies thyroid disease]. HEMATOLOGY/ONCOLOGY: [Denies bleeding or clotting disorder]. HEART: [Denies any chest pains, palpitations, paroxysmal dyspnea, orthopnea]. PULMONARY: [Denies chronic cough, dyspnea and wheezing]. GASTROINTESTINAL: [Denies rectal bleeding, family history of colon cancer, constipation, diarrhea, dysphagia, heartburn and jaundice]. GENITOURINARY: [Denies dysuria, frequency, hematuria and nocturia]. ENDOCRINE: [Denies polydipsia, polyphagia, polyuria, heat or cold intolerance]. INFECTIOUS: [Denies any recent upper respiratory tract infection, UTI, need for use of antibiotics]. NUTRITION: [Reports good appetite]. PHYSICAL EXAMINATION: VITALS SIGNS: Please see below. GENERAL APPEARANCE:[Patient seen, laying in bed, awake, alert, and oriented. Comfortable, in no acute distress]. SKIN: [Warm and moist]. HEENT: [Normocephalic, atraumatic. [place] palpebral conjunctiva, anicteric sclerae. Lips and mucosa appear moist]. NECK: [Supple, no thyromegaly. No obvious jugular venous distention]. LUNGS: [Clear to auscultation bilaterally. No wheezing appreciated]. HEART: [No chest wall abnormalities. Regular rate and rhythm with no murmurs appreciated]. ABDOMEN: Abdomen is , soft, . [No hepatosplenomegaly. No umbilical or groin herniations, nondistended. No noticeable rebound or guarding. No grimacing with palpation. No rebound tenderness. No masses appreciated]. EXTREMITIES: [Extremities have no deformities. No edema identified] ANCILLARIES: . LABORATORY DATA: Please see below. IMAGING STUDIES: . IMPRESSION AND PLAN: right leg cellulitis There is a tiny pustule in the middle of the area of cellulitis, superficial soft tissue induration which seems to be the entry point of the bacteria that caused the cellulitis. This apparently has been drained by Dr. Esposito yesterday and has been inflamed for at least 2 days (since wednesday) with progression of the cellulitis this morning after the drainage done yesterday. I think there maybe a small amount of hematoma underneath and surrounding the pustule. I think this may just dry up by itself so I richy give it some time for the antibiotics to work. Elevate the leg on two pillows to help with the leg swelling. Will evaluate in the morning. I dont think patient has necrotizing fasciitis, leg is soft, not tense. No compartment syndrome. Most of this is just plain cellulitis. Vital Signs Vital Signs Date Time Temp Pulse Resp B/P (MAP) Pulse Ox O2 Delivery O2 Flow Rate FiO2 06/23/19 18:11 18 06/23/19 15:25 97.9 78 152/93 (112) 97 06/23/19 10:42 Room Air Laboratory Data Labs 24H Laboratory Tests 2 06/23/19 11:36: Immature Granulocyte % (Auto) 0.2, White Blood Count 12.3H, Red Blood Count 4.84, Hemoglobin 13.7, Hematocrit 40.9, Mean Corpuscular Volume 84.5, Mean Corpuscular Hemoglobin 28.3, Mean Corpuscular Hemoglobin Concent 33.5, Red Cell Distribution Width 13.2, Platelet Count 381, Neutrophils (%) (Auto) 72.9H, Lymphocytes (%) (Auto) 18.8L, Monocytes (%) (Auto) 6.2H, Eosinophils (%) (Auto) 1.2, Basophils (%) (Auto) 0.7, Neutrophils # (Auto) 9.0H, Lymphocytes # (Auto) 2.3, Monocytes # (Auto) 0.8, Eosinophils # (Auto) 0.2, Basophils # (Auto) 0.1, Nucleated Red Blood Cells % (auto) 0.0, Erythrocyte Sedimentation Rate 11, Anion Gap 7L, Glomerular Filtration Rate > 60.0, Blood Urea Nitrogen 8, Creatinine 0.89, Sodium Level 139, Potassium Level 3.8, Chloride Level 105, Carbon Dioxide Level 27, Calcium Level 9.0, C-Reactive Protein, Quantitative 8.78H CBC/BMP Laboratory Tests 06/23/19 11:36 Red Blood Count 4.84, Mean Corpuscular Volume 84.5, Mean Corpuscular Hemoglobin 28.3, Mean Corpuscular Hemoglobin Concent 33.5, Red Cell Distribution Width 13.2, Neutrophils (%) (Auto) 72.9 H, Lymphocytes (%) (Auto) 18.8 L, Monocytes (%) (Auto) 6.2 H, Eosinophils (%) (Auto) 1.2, Basophils (%) (Auto) 0.7, Neutrophils # (Auto) 9.0 H, Lymphocytes # (Auto) 2.3, Monocytes # (Auto) 0.8, Eosinophils # (Auto) 0.2, Basophils # (Auto) 0.1, Calcium Level 9.0 Microbiology Microbiology 06/23/19 Blood Culture, Received Pending 06/23/19 Blood Culture, Received Pending Home Medications Scheduled Amlodipine Besylate (Amlodipine Besylate) 10 Mg Tablet, 10 MG PO DAILY, (Reported) Estradiol (Estradiol) 1 Mg Tab, 1 MG PO DAILY, (Reported) Fluconazole (Fluconazole) 100 Mg Tablet, 100 MG PO DAILY, (Reported) FOR 14 DAYS WHILE ON BACTRIM Losartan/Hydrochlorothiazide (Losartan-Hctz 100-12.5 mg Tab) 1 Each Tablet, 1 TA B PO DAILY, (Reported) Paroxetine HCl (Paroxetine ER) 37.5 Mg Tab.er.24h, 37.5 MG PO QHS, (Reported) Sulfamethoxazole/Trimethoprim (Sulfamethoxazole-Tmp Ds Tablet) 1 Each Tablet, 1 TAB PO BID, (Reported) FOR 14 DAYS STARTED 06/22/19 Scheduled PRN Ondansetron (Ondansetron Odt) 4 Mg Tab.rapdis, 4 MG PO Q6H PRN for NAUSEA OR VOMITING, (Reported) Allergies Coded Allergies: haloperidol (Verified Allergy, Intermediate, THRAOT AND TONGUE SWELLING, 06/14/19) chlorhexidine (Verified Allergy, Mild, ITCHY, 06/14/19) DAMIAN PARK MD Jun 23, 2019 18:18
[2019-06-23 20:00] VITALS: BP 136/82
[2019-06-23] MEDS: PARoxetine 12.5 MG **CR** TAB PO SCH (21:35)
[2019-06-23] MEDS ORDERED: VANCOMYCIN HCL 1,000 MG, VIAL MATE ADAPTER 1 EACH in D5W 250 ML IV SCH (22:45)
--- NOTE | 2019-06-23 22:48 | PHACANCOPD ---
PHARMACY VANCOMYCIN DOSING Pt Demographics Demographics Patient Age:28 , Weight:154.400 , Gender: female Adjusted Body Weight Date: 06/23/19, Adjusted Body Weight: Kg Events Past 24 Hours Events Past 24 Hours: NO: Dialysis, Diuretic Therapy, Change in CrCl, Fever, Elevation in WBC, Pending Diagnostics, Pending Procedures, Other Vancomycin Vancomycin Target Ranges: 15-20 mcg/ml Vancomycin Load Y/N: Yes Load Dose Date Time Vancomycin Load Dose: 2000mg Date: 06-24 Time: 0000 Vancomycin Dose Date: 06/23/19. Current Vancomycin Dose: [1000mg q6h] Intermittent Dosing?: No Labs Labs Item Value Date Time White Blood Count 12.3 10^3/uL H 06/23/19 1136 Creatinine 0.89 MG/DL 06/23/19 1136 Blood Urea Nitrogen 8 MG/DL 06/23/19 1136 Glomerular Filtration Rate > 60.0 06/23/19 1136 Vital Signs Label Value Date Time Patient Temperature 98.1 degrees F 06/23/191999 Temperature Source Temporal 06/23/191999 Micro Microbiology 06/23/19 Blood Culture, Received Pending 06/23/19 Blood Culture, Received Pending Creatinine Clearance Date:06/23/19. Creatinine Clearance: [~70]. Pending Labs Trough 06-24 @ 1700 Assessment and Plan Maintaining Current Dose?: Yes Reason for dose change: No Dose Change Pharmacist Note Pharmacist Note Date: 06/23/19. Pharmacist note:Will monitor and make adjustments as needed. EMILY LÓPEZ PHARMACY Jun 23, 2019 22:48
[2019-06-24] MEDS: PERCOCET 5MG/325MG TAB PO PRN ×4 (00:02→20:55)
[2019-06-24] MEDS: VANCOMYCIN HCL 1,000 MG, VIAL MATE ADAPTER 1 EACH in D5W 250 ML IV SCH ×5 (01:15→23:47)
[2019-06-24] MEDS: HEPARIN SOD (PORCINE) 5000 UNITS/ML VIAL SC SCH ×3 (05:49→20:54)
[2019-06-24] MEDS: NS 1,000 ML IV SCH ×2 (05:49→09:45)
[2019-06-24 06:46] LABS: HEMATOCRIT 37.1 % (36.0-47.0); HEMOGLOBIN 12.3 g/dl (12.0-15.5); MEAN CORPUSCULAR HEMOGLOBIN 28.3 pg (27.0-33.0); MEAN CORPUSCULAR HGB CONC 33.2 g/dl (32.0-36.5); MEAN CORPUSCULAR VOLUME 85.5 fl (80.0-96.0); PLATELET COUNT, AUTOMATED 314 10^3/uL (150-450); RED BLOOD COUNT 4.34 10^6/uL (4.00-5.40); WHITE BLOOD COUNT 8.6 10^3/uL (4.0-10.0)
[2019-06-24 07:05] VITALS: BP 149/98
[2019-06-24 07:06] LABS: ALBUMIN 3.1 GM/DL (3.2-5.2); ALT/SGPT 22 U/L (12-78); BILIRUBIN,TOTAL 0.4 MG/DL (0.2-1.0); BLOOD UREA NITROGEN 6 MG/DL (7-18); CALCIUM LEVEL 8.3 MG/DL (8.5-10.1); CARBON DIOXIDE LEVEL 29 MEQ/L (21-32); CHLORIDE LEVEL 108 MEQ/L (98-107); CREATININE FOR GFR 0.82 MG/DL (0.55-1.30); GLOMERULAR FILTRATION RATE > 60.0 (>60); GLUCOSE, FASTING 102 MG/DL (70-100); POTASSIUM SERUM 3.6 MEQ/L (3.5-5.1); SODIUM LEVEL 140 MEQ/L (136-145); TOTAL PROTEIN 6.9 GM/DL (6.4-8.2)
[2019-06-24] MEDS ORDERED: POTASSIUM CHLORIDE 10 MEQ SR TABLET PO ONE (08:15)
[2019-06-24] MEDS: hydroCHLOROthiazide 12.5 MG CAPSULE PO SCH (08:16)
[2019-06-24] MEDS: LOSARTAN 50 MG TAB PO SCH (08:17)
[2019-06-24] MEDS: ESTRADIOL 1 MG TAB PO SCH (08:18)
[2019-06-24] MEDS ORDERED: amLODIPine 10 MG TAB PO SCH ×2 (09:00→21:00)
--- NOTE | 2019-06-24 12:40 | IPNPDOC ---
Text Note Date of Service The patient was seen on 06/24/19. NOTE Patient seen and examined Area of cellulitis better, still complains of pain at about the tibial ridge, able to ambulate Area of erythema has markedly receded. The pustule has dried off, and the wound is draining a tiny amount of clear fluid. Minimal residual superficial soft tissue induration left (maybe a mm or 2) around the opening. Impresion Right leg cellulitis no I&D required. Abx per medical service will sign off VS,Fishbone, I+O VS, Fishbone, I+O Laboratory Tests 06/24/19 06:20 Red Blood Count 4.34, Mean Corpuscular Volume 85.5, Mean Corpuscular Hemoglobin 28.3, Mean Corpuscular Hemoglobin Concent 33.2, Red Cell Distribution Width 13.2, Calcium Level 8.3 L, Aspartate Amino Transf (AST/SGOT) 13, Alanine Amino transferase (ALT/SGPT) 22, Alkaline Phosphatase 52, Total Bilirubin 0.4, Total Protein 6.9, Albumin 3.1 L Vital Signs Date Time Temp Pulse Resp B/P (MAP) Pulse Ox O2 Delivery O2 Flow Rate FiO2 06/24/19 12:34 18 06/24/19 08:22 85 112/71 06/24/19 07:05 97.3 97 06/23/19 10:42 Room Air I&O- Last 24 Hours up to 6 AM 06/24/19 06:00 Intake Total 2990 ml Output Total 700 ml Balance 2290 ml DAMIAN PARK MD Jun 24, 2019 12:40
[2019-06-24 14:30] VITALS: BP 132/83
--- NOTE | 2019-06-24 16:24 | IPNPDOC ---
Date Seen The patient was seen on 06/24/19. 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 She also reports associated fever for the past few days, nausea, fatigue. She reports a history of MRSA infection, following surgery, feels this is similar. She denies any shortness of breath, chest pain, abdominal pain or diarrhea at this time. 06/24/2019 No acute events overnight, significant improvement in right lower extremity erythema and pain, minimal clear drainage from right lower extremity, afebrile, tolerating diet, ambulating, without any complaint at this time. Patient denies shortness of breath, chest pain, abdominal pain, nausea, vomiting, diarrhea, constipation. 10 point review of system was negative except for above OBJECTIVE PHYSICAL EXAMINATION: VITAL SIGNS: Please see below. GENERAL: Morbidly obese HEENT: Normocephalic, atraumatic, moist mucous membranes NECK: Supple CARDIOVASCULAR EXAMINATION: S1, S2, no murmurs RESPIRATORY EXAMINATION: Clear to auscultation, no wheezing ABDOMINAL EXAMINATION: Soft, nontender, nondistended, positive bowel sounds EXTREMITIES: Significant improvement of right lower extremity erythema, mild te nderness to palpation surrounding the open pustule, minimal clear drainage noted. SKIN: No rash NEUROLOGICAL EXAMINATION: Alert and oriented 3, no focal deficits PSYCHIATRIC EXAMINATION: Calm and cooperative LABORATORY DATA, IMAGING STUDIES, MICROBIOLOGY: Please see below. DVT prophylaxis ordered?: Yes ASSESSMENT AND PLAN: 28-year-old female with past medical history of hypertension and anxiety, admitted for right lower extremity cellulitis. PROBLEMS: 1. Cellulitis: . Improving with vancomycin, continue. IV fluids discontinued Surgically appreciated 2. Hypertension: Continue home meds with hold parameters. 3. Anxiety: Continue home medication. DVT prophylaxis: Heparin subcutaneous. GI prophylaxis: Not needed VS, I&O, 24H, Fishbone Vital Signs/I&O Vital Signs Date Time Temp Pulse Resp B/P (MAP) Pulse Ox O2 Delivery O2 Flow Rate FiO2 06/24/19 14:30 98.4 65 16 132/83 (99) 96 06/23/19 10:42 Room Air I&O- Last 24 Hours up to 6 AM 06/24/19 06:00 Intake Total 2990 ml Output Total 700 ml Balance 2290 ml Laboratory Data 24H LABS Laboratory Tests 2 06/24/19 06:20: Nucleated Red Blood Cells % (auto) 0.0, Anion Gap 3L, Glomerular Filtration Rate > 60.0, Blood Urea Nitrogen 6L, Creatinine 0.82, Sodium Level 140, Potassium Level 3.6, Chloride Level 108H, Carbon Dioxide Level 29, Calcium Level 8.3L, Aspartate Amino Transf (AST/SGOT) 13, Alanine Aminotransferase (ALT/SGPT) 22, Alkaline Phosphatase 52, Total Bilirubin 0.4, Total Protein 6.9, Albumin 3.1L, Magnesium Level 2.0, Albumin/Globulin Ratio 0.82L CBC/BMP Laboratory Tests 06/24/19 06:20 Red Blood Count 4.34, Mean Corpuscular Volume 85.5, Mean Corpuscular Hemoglobin 28.3, Mean Corpuscular Hemoglobin Concent 33.2, Red Cell Distribution Width 13.2, Calcium Level 8.3 L, Aspartate Amino Transf (AST/SGOT) 13, Alanine Amino transferase (ALT/SGPT) 22, Alkaline Phosphatase 52, Total Bilirubin 0.4, Total Protein 6.9, Albumin 3.1 L Microbiology Microbiology 06/23/19 Blood Culture - Preliminary, Resulted No growth after 24 hours . All specim... 06/23/19 Blood Culture - Preliminary, Resulted No growth after 24 hours . All specim... LENORA QUINN MD Jun 24, 2019 16:24
[2019-06-24] MEDS: MIRALAX *UNIT DOSE* 17GM PACKET PO PRN (16:54)
--- NOTE | 2019-06-24 17:50 | PHACANCOPD ---
PHARMACY VANCOMYCIN DOSING Pt Demographics Demographics Patient Age:28 , Weight:154.400 , Gender: female Adjusted Body Weight Date: 06/23/19, Adjusted Body Weight: [102.86] Kg Events Past 24 Hours Events Past 24 Hours: NO: Dialysis, Diuretic Therapy, Change in CrCl, Fever, Elevation in WBC, Pending Diagnostics, Pending Procedures, Other Vancomycin Vancomycin Target Ranges: 15-20 mcg/ml Vancomycin Load Y/N: Yes Load Dose Date Time Vancomycin Load Dose: 2000mg Date: 06-24 Time: 0000 Vancomycin Dose Date: 06/23/19. Current Vancomycin Dose: [1000mg q6h] Intermittent Dosing?: No Labs Labs Item Value Date Time White Blood Count 12.3 10^3/uL H 06/23/19 1136 White Blood Count 8.6 10^3/uL 06/24/19 0620 C-Reactive Protein, Quantitative 8.78 MG/DL H 06/23/19 1136 Creatinine 0.89 MG/DL 06/23/19 1136 Creatinine 0.82 MG/DL 06/24/19 0620 Vancomycin Level Trough 20.1 UG/ML H 06/24/19 1648 Micro Microbiology 06/23/19 Blood Culture - Preliminary, Resulted No growth after 24 hours . All specim... 06/23/19 Blood Culture - Preliminary, Resulted No growth after 24 hours . All specim... Creatinine Clearance Date:06/23/19. Creatinine Clearance: [164.4ML/MIN]. Pending Labs Trough 10- @ 1100 Assessment and Plan Maintaining Current Dose?: Yes Reason for dose change: No Dose Change Pharmacist Note Pharmacist Note Date: 06/24/19. Pharmacist note:Trough came back 07/25/19 @16:48 at 20.1mcg/ml. We will continue 1g iv every 6 hours. Another trough is scheduled 06/25/19 @11:00 to monitor for accumulation. We will continue to monitor and adjust the doses as needed. Date: 06/23/19. Pharmacist note:Will monitor and make adjustments as needed. FERNANDA MUNOZ PHARMACY Jun 24, 2019 17:50
[2019-06-24] MEDS: PARoxetine 12.5 MG **CR** TAB PO SCH (20:54)
[2019-06-24 20:57] VITALS: BP 150/96
[2019-06-25] MEDS: PERCOCET 5MG/325MG TAB PO PRN ×2 (05:44→12:09)
[2019-06-25] MEDS: VANCOMYCIN HCL 1,000 MG, VIAL MATE ADAPTER 1 EACH in D5W 250 ML IV SCH (05:44)
[2019-06-25] MEDS: HEPARIN SOD (PORCINE) 5000 UNITS/ML VIAL SC SCH (05:45)
[2019-06-25 06:45] VITALS: BP 148/95
[2019-06-25 08:17] VITALS: BP 145/94
[2019-06-25] MEDS: ESTRADIOL 1 MG TAB PO SCH (08:17)
[2019-06-25] MEDS: LOSARTAN 50 MG TAB PO SCH (08:17)
[2019-06-25] MEDS: hydroCHLOROthiazide 12.5 MG CAPSULE PO SCH (08:18)
[2019-06-25] MEDS: MIRALAX *UNIT DOSE* 17GM PACKET PO PRN (08:18)
[2019-06-25] MEDS ORDERED: PERCOCET PO (10:49)
[2019-06-25 11:16] LABS: HEMOGLOBIN 12.9 g/dl (12.0-15.5); MEAN CORPUSCULAR HEMOGLOBIN 28.4 pg (27.0-33.0); MEAN CORPUSCULAR HGB CONC 33.1 g/dl (32.0-36.5); MEAN CORPUSCULAR VOLUME 85.7 fl (80.0-96.0); PLATELET COUNT, AUTOMATED 353 10^3/uL (150-450); RED BLOOD COUNT 4.55 10^6/uL (4.00-5.40); WHITE BLOOD COUNT 7.8 10^3/uL (4.0-10.0)
[2019-06-25 11:39] LABS: BLOOD UREA NITROGEN 7 MG/DL (7-18); C REACTIVE PROTEIN QUANTITATIV 4.87 MG/DL (0.00-0.30); CALCIUM LEVEL 8.8 MG/DL (8.5-10.1); CARBON DIOXIDE LEVEL 32 MEQ/L (21-32); CHLORIDE LEVEL 103 MEQ/L (98-107); CREATININE FOR GFR 0.93 MG/DL (0.55-1.30); GLOMERULAR FILTRATION RATE > 60.0 (>60); GLUCOSE, FASTING 92 MG/DL (70-100); POTASSIUM SERUM 3.5 MEQ/L (3.5-5.1); SODIUM LEVEL 139 MEQ/L (136-145); VANCOMYCIN LEVEL TROUGH 17.2 UG/ML (10.0-20.0)
--- NOTE | 2019-06-25 12:32 | DS.PDOC ---
Discharge Summary General Date of Admission Jun 23, 2019 at 13:33 Date of Discharge 06/25/2019 Attending Physician: LENORA QUINN MD Discharge Summary PROCEDURES PERFORMED DURING STAY: None. ADMITTING DIAGNOSES: 1. Cellulitis. DISCHARGE DIAGNOSES: 1. Cellulitis. COMPLICATIONS/CHIEF COMPLAINT: Cellulitis Of Right Lower Extremity. HISTORY OF PRESENT ILLNESS: 28-year-old female admitted for right lower show any cellulitis, reports history of MRSA infection in the past, has improved dramatically with vancomycin. She is currently comfortable, tolerating diet, ambulating, without any complaints, minimal drainage from small ulceration in the right lower extremity, pain is significantly better. She will be discharged and advised to complete her course of Bactrim for 8 more days to complete a total of 10 days of antibiotics. She still has the Bactrim prescribed by her physician prior to admission, she had only taken one dose, so cannot call it an antibiotic failure. She has the pills with her, prescribed one double strength Bactrim twice a day, patient notified on frequency and duration of antibiotics, patient reports understanding. HOSPITAL COURSE: As above. DISCHARGE MEDICATIONS: Please see below. ALLERGIES: Please see below. PHYSICAL EXAMINATION: VITAL SIGNS: Please see below. GENERAL: No distress HEENT: Normocephalic, atraumatic, moist mucous membranes NECK: Supple CARDIOVASCULAR EXAMINATION: S1, S2, no murmurs RESPIRATORY EXAMINATION: Clear to auscultation, no wheezing ABDOMINAL EXAMINATION: Soft, nontender, nondistended, positive bowel sounds EXTREMITIES: Range of motion intact SKIN: Right lower extremity with open ulcer, minimal clear discharge, surrounding erythema, substantially improved from admission, mild tenderness to palpation. NEUROLOGICAL EXAMINATION: Alert and oriented 3, no focal deficits PSYCHIATRIC EXAMINATION: Calm and cooperative LABORATORY DATA: Please see below. IMAGING: Lower extremity imaging with cellulitis PROGNOSIS: Good ACTIVITY: As tolerated. DIET: Regular DISCHARGE PLAN: Patient has follow-up with PCP within 1-2 weeks; patient is advised to complete antibiotic course for a total of 10 days of antibiotics. DISPOSITION: 01 Home, Self-Care. DISCHARGE INSTRUCTIONS: 1. As above. DISCHARGE CONDITION: Stable. TIME SPENT ON DISCHARGE: Greater than 24 minutes. Vital Signs/I&Os Vital Signs Date Time Temp Pulse Resp B/P (MAP) Pulse Ox O2 Delivery O2 Flow Rate FiO2 06/25/19 12:09 18 06/25/19 08:17 145/94 06/25/19 06:45 97.5 71 94 06/23/19 10:42 Room Air I&O- Last 24 Hours up to 6 AM 06/25/19 06:00 Intake Total 2870 ml Balance 2870 ml Laboratory Data Labs 24H Laboratory Tests 2 06/24/19 16:48: Vancomycin Level Trough 20.1H 06/25/19 11:05: Vancomycin Level Trough 17.2, Nucleated Red Blood Cells % (auto) 0.0, Anion Gap 4L, Glomerular Filtration Rate > 60.0, Blood Urea Nitrogen 7, Creatinine 0.93, Sodium Level 139, Potassium Level 3.5, Chloride Level 103, Carbon Dioxide Level 32, Calcium Level 8.8, C-Reactive Protein, Quantitative 4.87H CBC/BMP Laboratory Tests 06/25/19 11:05 Red Blood Count 4.55, Mean Corpuscular Volume 85.7, Mean Corpuscular Hemoglobin 28.4, Mean Corpuscular Hemoglobin Concent 33.1, Red Cell Distribution Width 13.1, Calcium Level 8.8 Microbiology Microbiology 06/23/19 Blood Culture - Preliminary, Resulted No Growth after 48 hours. All Specime... 06/23/19 Blood Culture - Preliminary, Resulted No Growth after 48 hours. All Specime... Discharge Medications Scheduled Amlodipine Besylate (Amlodipine Besylate) 10 Mg Tablet, 10 MG PO DAILY, (Reported) Estradiol (Estradiol) 1 Mg Tab, 1 MG PO DAILY, (Reported) Losartan/Hydrochlorothiazide (Losartan-Hctz 100-12.5 mg Tab) 1 Each Tablet, 1 TAB PO DAILY, (Reported) Paroxetine HCl (Paroxetine ER) 37.5 Mg Tab.er.24h, 37.5 MG PO QHS, (Reported) Sulfamethoxazole/Trimethoprim (Sulfamethoxazole-Tmp Ds Tablet) 1 Each Tablet, 1 TAB PO BID, (Reported) FOR 14 DAYS STARTED 06/22/19 Scheduled PRN Ondansetron (Ondansetron Odt) 4 Mg Tab.rapdis, 4 MG PO Q6H PRN for NAUSEA OR VOMITING, (Reported) Oxycodone/Acetaminophen (Oxycodone-Acetaminophen 5-325) 1 Each Tablet, 1 TAB PO Q6HP PRN for SEVERE PAIN (PS 8-10) Allergies Coded Allergies: haloperidol (Verified Allergy, Intermediate, THRAOT AND TONGUE SWELLING, 06/14/19) chlorhexidine (Verified Allergy, Mild, ITCHY, 06/14/19) LENORA QUINN MD Jun 25, 2019 12:32
== END 2019-06-25 12:22 | disposition home or self-care (01) | DRG 383 ==
LOC: M ED 10:41 → M ED INP 13:33 → M MS5PR 15:25
PROVIDERS: ADMIT Internal Medicine; ATTEND Internal Medicine
DX: L03.115 Cellulitis of right lower limb (principal); I10 Essential (primary) hypertension; Z79.899 Other long term (current) drug therapy; Z88.8 Allergy status to other drugs, medicaments and biological substances; F41.9 Anxiety disorder, unspecified; F32.9 Major depressive disorder, single episode, unspecified

== ENCOUNTER → 2020-03-19 | Outpatient (REF) | payer OTHER ==
[~2020-03-19] MED LIST changes: +AMLO1TAB25 PO; +FLUC100T PO; -METH4TAB28; +METH4TAB8; +PERCOCET PO; -RANI-356 PO; +RANI-397 PO; +SULF1TAB93 PO
== END ==
LOC: M LAB REF 13:02
PROVIDERS: ATTEND Physician Assistant
DX: R30.0 Dysuria (principal)

== ENCOUNTER → 2020-03-21 | Outpatient (CLI) | payer OTHER ==
--- NOTE | 2020-03-21 10:08 | REP ---
REASON: Right upper quadrant pain. COMPARISON: 10/11/2013, which was within normal limits. Ultrasonographic evaluation of the liver shows a parenchymal echo pattern to be increased in a patchy heterogenous appearance. There are no masses. There is no intrahepatic or extrahepatic ductal dilatation. The common bile duct measures 3 mm. The gallbladder is unremarkable in appearance. The imaged portion of the right kidney and pancreas are within normal limits. There is no free fluid in the abdomen. IMPRESSION: Geographic fatty infiltration of the liver is suspected. Electronically Signed by César Garnica DO 03/21/2020 04:54 P
== END ==
LOC: M RAD 06:24
PROVIDERS: ATTEND Physician Assistant
DX: R10.811 Right upper quadrant abdominal tenderness (principal); K76.0 Fatty (change of) liver, not elsewhere classified

== ENCOUNTER → 2020-11-29 | Outpatient (REF) | payer OTHER ==
[~2020-11-29] MED LIST changes: +LABE100T4 PO; -LABE10TAB PO
[2020-11-29 17:23] LABS: PERCENT SATURATION 10.3 % (13.2-45.0)
== END ==
LOC: M LAB REF 16:15
PROVIDERS: ATTEND Internal Medicine
DX: Z98.84 Bariatric surgery status (principal)

== ENCOUNTER 2021-02-13 03:48 | Emergency (ER) | payer OTHER ==
[~2021-02-13] VITALS: Ht 177.8 cm; Wt 113.5 kg
[~2021-02-13 03:48] MED LIST changes: +BACTDSTA PO; -SULF1TAB93 PO
[2021-02-13] MEDS ORDERED: PRED20TA (04:03)
[2021-02-13] MEDS ORDERED: OMEP-221 (04:03)
[2021-02-13] MEDS ORDERED: [UNRECOGNIZED DRUG - CODE] (04:03)
[2021-02-13] MEDS ORDERED: AMOX875T (04:03)
[2021-02-13] MEDS ORDERED: AMLO1TAB24 (04:03)
[2021-02-13] MEDS ORDERED: HYDR-3363 (04:03)
[2021-02-13] MEDS ORDERED: FERR32TA (04:03)
[2021-02-13 04:51] LABS: VENOUS BASE EXCESS 0.3 (-2.0-2.0); VENOUS HCO3 25.1 MEQ/L (23.0-27.0); VENOUS O2 SATURATION 92.8 % (60.0-80.0); VENOUS PARTIAL PRESSURE CO2 41.4 mmHg (38.0-50.0); VENOUS PARTIAL PRESSURE O2 63.4 mmHg (30.0-50.0); VENOUS PH 7.401 UNITS (7.330-7.430); VENOUS STANDARD HCO3 24.6 MEQ/L; VENOUS TOTAL CO2 26.4 MEQ/L (24.0-28.0)
[2021-02-13 04:55] LABS: BASO # 0.1 10^3/uL (0.0-0.2); EOS # 0.4 10^3/uL (0.0-0.5); EOS % 3.6 % (0.0-3.0); HEMATOCRIT 43.7 % (36.0-47.0); HEMOGLOBIN 14.7 g/dl (12.0-15.5); LYMPH # 3.8 10^3/uL (1.5-5.0); LYMPH % 34.6 % (24.0-44.0); MEAN CORPUSCULAR HEMOGLOBIN 29.8 pg (27.0-33.0); MEAN CORPUSCULAR HGB CONC 33.6 g/dl (32.0-36.5); MEAN CORPUSCULAR VOLUME 88.6 fl (80.0-96.0); MONO # 0.8 10^3/uL (0.0-0.8); NEUTROPHILS # 5.8 10^3/uL (1.5-8.5); NEUTROPHILS % 53.4 % (36.0-66.0); PLATELET COUNT, AUTOMATED 361 10^3/uL (150-450); RED BLOOD COUNT 4.93 10^6/uL (4.00-5.40); WHITE BLOOD COUNT 10.9 10^3/uL (4.0-10.0)
[2021-02-13 05:26] LABS: ALBUMIN 3.4 GM/DL (3.2-5.2); ALT/SGPT 22 U/L (12-78); BILIRUBIN,DIRECT 0.2 MG/DL (0.0-0.2); BILIRUBIN,TOTAL 0.5 MG/DL (0.2-1.0); BLOOD UREA NITROGEN 7 MG/DL (7-18); CALCIUM LEVEL 8.5 MG/DL (8.5-10.1); CARBON DIOXIDE LEVEL 27 MEQ/L (21-32); CHLORIDE LEVEL 109 MEQ/L (98-107); CREATININE FOR GFR 0.66 MG/DL (0.55-1.30); GLOMERULAR FILTRATION RATE > 60.0 (>60); GLUCOSE, FASTING 64 MG/DL (70-100); POTASSIUM SERUM 3.6 MEQ/L (3.5-5.1); SODIUM LEVEL 142 MEQ/L (136-145); TOTAL PROTEIN 6.3 GM/DL (6.4-8.2)
[2021-02-13 05:31] LABS: HCG, SERUM QUALITATIVE NEGATIVE (NEGATIVE)
--- NOTE | 2021-02-13 06:01 | REPVR ---
PROCEDURE INFORMATION: Exam: XR Chest Exam date and time: 02/13/2021 5:39 AM Age: 30 years old Clinical indication: Other: Dyspnea; Additional info: Dyspnea/cough TECHNIQUE: Imaging protocol: XR of the chest. Views: 1 view. COMPARISON: CR CHEST 2 VIEW 12/16/2015 11:47 AM FINDINGS: Lungs: Unremarkable. No consolidation. Pleural spaces: Unremarkable. No pleural effusion. No pneumothorax. Heart/Mediastinum: Unremarkable. No cardiomegaly. Bones/joints: Unremarkable. IMPRESSION: No acute findings. Electronically signed by: Deangelo Fernández On 02/13/2021 06:00:56 AM
[2021-02-13] MEDS ORDERED: ISOVUE-370 76% 100ML VIAL As Ordered ONE (07:12)
[2021-02-13 07:28] LABS: CK-MB VALUE MASS 1.6 NG/ML (<3.6); CPK CREATINE PHOSPHOKINASE 211 U/L (26-192); MB/CK RELATIVE INDEX 0.76 (< OR =4); TROPONIN I < 0.02 NG/ML (< 0.10)
[2021-02-13] MEDS ORDERED: NS 1,000 ML IV ONE (07:45)
[2021-02-13] MEDS ORDERED: methylPREDNISolone 125MG 2ML VIAL IV ONE (07:45)
[2021-02-13] MEDS ORDERED: ACETAMINOPHEN 500 MG TAB PO ONE (08:10)
[2021-02-13 09:00] LABS: CK-MB VALUE MASS 1.9 NG/ML (<3.6); CPK CREATINE PHOSPHOKINASE 183 U/L (26-192); MB/CK RELATIVE INDEX 1.04 (< OR =4); TROPONIN I < 0.02 NG/ML (< 0.10)
--- NOTE | 2021-02-13 09:00 | REP ---
INDICATION: shortness of breath, chest pain, ro PE COMPARISON: None. TECHNIQUE: Axial contrast enhanced images from the thoracic inlet to the upper abdomen using pulmonary embolus technique with multiplanar re-formations. 75 ml Isovue 370 intravenous contrast material administered without complication. This CT examination was performed using the following dose reduction techniques: Automated exposure control, adjustment of mA and/or kv according to the patient's size, and use of iterative reconstruction technique. FINDINGS: Satisfactory enhancement of the pulmonary vasculature is achieved and no filling defects are identified to suggest pulmonary embolus. Further evaluation of the mediastinum demonstrates normal thoracic aorta, heart and pericardium. The bilateral lung mckeon are well aerated and clear without consolidation pleural effusion or pneumothorax. Tracheobronchial tree is patent. No nodule or mass lesion is identified. No adenopathy noted. Surrounding musculoskeletal structures intact IMPRESSION: No evidence for pulmonary embolus. No acute mediastinal or pleural parenchymal process. <Electronically signed by Himanshu Manley > 02/13/21 [id number]
[2021-02-13] MEDS ORDERED: VENTAER INH (09:12)
[2021-02-13] MEDS ORDERED: PSEU120T19 PO (09:12)
[2021-02-13 09:27] VITALS: BP 147/88
--- NOTE | 2021-02-13 19:52 | ECGEPIP ---
[facility] - ED Test Date: 2021-02-13 Pat Name: TORRIE VAZQUEZ Department: Room: - Gender: Female [employer]: : 1990 Requested By: ELVIA Snider PA-C Order Number: [id number] Reading MD: Yovani Mcneal Measurements Intervals [place] Rate: 58 P: [place]: 150 QRS: 192 QRSD: 90 T: 176 QT: 448 QTc: 439 Interpretive Statements Sinus bradycardia with sinus arrhythmia [id number] ABNORMALITY(S) Electronically Signed on 02-13-2021 19:51:40 EDT by Yovani Mcneal
== END 2021-02-13 09:32 | disposition home or self-care (01) ==
LOC: M ED 03:48
DX: J00 Acute nasopharyngitis [common cold] (principal); M94.0 Chondrocostal junction syndrome [Tietze]; I10 Essential (primary) hypertension; F41.9 Anxiety disorder, unspecified; Z98.84 Bariatric surgery status; Z79.899 Other long term (current) drug therapy; Z88.8 Allergy status to other drugs, medicaments and biological substances; F17.210 Nicotine dependence, cigarettes, uncomplicated
CPT/HCPCS: 71045; 71275; 80048; 80076; 82550; 82553; 82803; 84703; 85025; 87798; 87880; 93005; 93041; 96361; 96374; 99285; J2930; Q9967

== ENCOUNTER → 2021-03-10 | Outpatient (CLI) | payer OTHER ==
[~2021-03-10] MED LIST changes: +AMLO1TAB24; +AMOX875T; -DOXY100C37; +DOXY1CAP62; +FERR32TA; +HYDR-3363; +OMEP-221; +PRED20TA; +PSEU120T19 PO; +VENTAER INH; +[UNRECOGNIZED DRUG - CODE]
--- NOTE | 2021-03-10 15:47 | REP ---
INDICATION: LOW BACK PAIN COMPARISON: 04/11/2018 TECHNIQUE: AP, lateral, bilateral oblique, and coned-down views of the lumbar spine. FINDINGS: Mild chronic appearing levoconvex scoliosis centered L3-4 with asymmetric right-sided osteophyte formation and endplate sclerosis/disc space narrowing. Lateral view also demonstrates endplate sclerosis and minimal disc space narrowing at L5-S1. Remainder of the examination is grossly normal. No acute fracture/compression injury or subluxation. IMPRESSION: Moderate focal degenerative changes at L3-4 and L5-S1. <Electronically signed by Himanshu Manley > 03/10/21 1540
== END ==
LOC: M ADAMS 15:23
PROVIDERS: ATTEND Internal Medicine
DX: M54.5 Low back pain (principal)

== ENCOUNTER → 2021-03-20 | Outpatient (CLI) | payer OTHER ==
[~2021-03-20] MED LIST changes: +DOXY-443; -DOXY1CAP62; -FLUC100T PO; +FLUC100T3 PO; -FLUC150T; +FLUC150T9; -OMEP-221; +OMEP40CA5; -PARO37.54 PO; +PARO37.55 PO
[2021-03-27 13:43] LABS: DRVV SCREEN 34.4 SEC; PTT LUPUS TYPE ANTICOAG SCREEN 0.9 (0-1.2)
[2021-03-27 16:19] LABS: ANTI THROMBIN 3 FUNCT ACTIVITY 105 % (75-135); CARDIOLIPIN IGA ANTIBODY <9 APL U/mL (0-11); CARDIOLIPIN IGG ANTIBODY <9 GPL U/mL (0-14); CARDIOLIPIN IGM ANTIBODY <9 MPL U/mL (0-12); HOMOCYST(E)INE SERUM 15.6 umol/L (0.0-14.5); PROTEIN C FUNCTIONAL ACTIVITY 121 % (73-180); PROTEIN S FUNCTIONAL ACTIVITY 114 % (63-140)
== END ==
LOC: M RAD 13:01
PROVIDERS: ATTEND Internal Medicine
DX: M79.604 Pain in right leg (principal); M79.605 Pain in left leg

== ENCOUNTER → 2021-08-21 | Outpatient (REF) | payer OTHER ==
[~2021-08-21] MED LIST changes: +FLUC100T PO; -FLUC100T3 PO; +FLUC150T; -FLUC150T9; +OMEP-221; -OMEP40CA5; +PARO37.54 PO; -PARO37.55 PO
[2021-08-21 22:01] LABS: GC DNA AMPLIFICATION NEGATIVE (NEGATIVE)
== END ==
LOC: M WUC 19:42
PROVIDERS: ATTEND Physician Assistant
DX: N76.0 Acute vaginitis (principal)

== ENCOUNTER → 2021-12-04 | Outpatient (REF) | payer OTHER ==
[~2021-12-04] MED LIST changes: -FLUC100T PO; +FLUC100T3 PO; -FLUC150T; +FLUC150T9; -OMEP-221; +OMEP40CA5; -PARO37.54 PO; +PARO37.55 PO
== END ==
LOC: M LAB REF 16:12
PROVIDERS: ATTEND Internal Medicine
DX: Z98.84 Bariatric surgery status (principal)

== ENCOUNTER → 2022-02-27 | Outpatient (CLI) | payer OTHER | LOC: M LAB 09:41 | PROVIDERS: ATTEND Registered Nurse | DX: F41.1 Generalized anxiety disorder (principal); R00.1 Bradycardia, unspecified ==

== ENCOUNTER → 2022-02-27 | Outpatient (CLI) | payer OTHER | LOC: M RAD 09:40 | PROVIDERS: ATTEND Internal Medicine | DX: R10.2 Pelvic and perineal pain (principal); R35.0 Frequency of micturition ==

== ENCOUNTER → 2022-03-02 | Outpatient (CLI) | payer OTHER | LOC: M WUC 09:21 | PROVIDERS: ATTEND Physician Assistant | DX: J20.9 Acute bronchitis, unspecified (principal) ==

== ENCOUNTER → 2022-04-30 | Outpatient (REF) | payer OTHER ==
[~2022-04-30] MED LIST changes: -LABE100T4 PO; +LABE100T6 PO
[2022-04-30 18:26] LABS: GC DNA AMPLIFICATION NEGATIVE (NEGATIVE)
== END ==
LOC: M LAB REF 16:03
PROVIDERS: ATTEND Internal Medicine
DX: R10.2 Pelvic and perineal pain (principal); R35.0 Frequency of micturition

== ENCOUNTER → 2022-05-04 | Outpatient (CLI) | payer OTHER | LOC: M WHC 13:01 | PROVIDERS: ATTEND Internal Medicine | DX: N64.4 Mastodynia (principal) ==

== ENCOUNTER → 2022-05-05 | Outpatient (REF) | payer OTHER | LOC: M PLALAB 16:32 | PROVIDERS: ATTEND Advanced Practice Midwife | DX: R35.0 Frequency of micturition (principal) ==

== ENCOUNTER → 2022-06-03 | Outpatient (CLI) | payer OTHER | LOC: M LABDRWAD 10:30 | PROVIDERS: ATTEND Advanced Practice Midwife | DX: Z13.79 Encounter for other screening for genetic and chromosomal anomalies (principal); Z80.8 Family history of malignant neoplasm of other organs or systems; Z84.81 Family history of carrier of genetic disease ==

== ENCOUNTER → 2022-07-01 | Outpatient (REF) | payer OTHER | LOC: M LAB REF 16:22 | PROVIDERS: ATTEND Internal Medicine | DX: R19.7 Diarrhea, unspecified (principal); Z98.84 Bariatric surgery status; R10.32 Left lower quadrant pain ==

== ENCOUNTER → 2023-12-27 | Outpatient (CLI) | payer OTHER, MEDICAID | LOC: M WUC 08:44 | PROVIDERS: ATTEND Student in an Organized Health Care Education/Training Program | DX: J20.9 Acute bronchitis, unspecified (principal) ==

== ENCOUNTER → 2024-07-05 | Outpatient (CLI) | payer OTHER ==
[~2024-07-05] MED LIST changes: +DOXY-441; -DOXY-443; +ONDA-282 PO; -ONDA4TAB6 PO
[2024-07-05 14:27] LABS: ESTRADIOL 126.2 PG/ML; FOLLICLE STIMULATING HORMONE 3.7 mIU/ML; LUTEINIZING HORMONE 7.2 mIU/ML
== END ==
LOC: M PLALAB 11:56
PROVIDERS: ATTEND Specialist
DX: N95.9 Unspecified menopausal and perimenopausal disorder (principal)

== ENCOUNTER → 2024-07-26 | Outpatient (REF) | payer OTHER | LOC: M LAB REF 16:41 | PROVIDERS: ATTEND Internal Medicine | DX: D48.62 Neoplasm of uncertain behavior of left breast (principal); Z12.31 Encounter for screening mammogram for malignant neoplasm of breast ==

== ENCOUNTER → 2024-09-15 | Outpatient (CLI) | payer OTHER ==
[2024-09-15 16:28] LABS: BLOOD UREA NITROGEN 14 MG/DL (9-23); CALCIUM LEVEL 9.2 MG/DL (8.5-10.1); CARBON DIOXIDE LEVEL 33 MMOL/L (20-31); CHLORIDE LEVEL 103 MMOL/L (98-107); CREATININE FOR GFR 0.78 MG/DL (0.55-1.30); GLOMERULAR FILTRATION RATE > 60.0 (>60); GLUCOSE, FASTING 85 MG/DL (60-100); POTASSIUM SERUM 4.4 MMOL/L (3.5-5.1); SODIUM LEVEL 142 MMOL/L (136-145)
== END ==
LOC: M PLALAB 14:16
PROVIDERS: ATTEND Internal Medicine
DX: I10 Essential (primary) hypertension (principal)

== ENCOUNTER → 2025-05-21 | Outpatient (REF) | payer OTHER ==
[~2025-05-21] MED LIST changes: -IBUP-1022 PO; +IBUP600T42 PO
[2025-05-21 19:13] LABS: IRON (FE) 125.0 UG/DL (50-170); PERCENT SATURATION 33.2 % (13.2-45.0)
[2025-05-21 19:15] LABS: VITAMIN B12 LEVEL 713.0 PG/ML (211-911)
== END ==
LOC: M LAB REF 17:42
PROVIDERS: ATTEND Internal Medicine
DX: R53.83 Other fatigue (principal)

== ENCOUNTER → 2025-05-23 | Outpatient (REF) | payer OTHER | LOC: M LAB REF 11:59 | PROVIDERS: ATTEND Internal Medicine | DX: R61 Generalized hyperhidrosis (principal); I10 Essential (primary) hypertension; R51.9 Headache, unspecified ==

== ENCOUNTER → 2025-05-29 | Outpatient (REF) | payer OTHER | LOC: M LABDRWAD 13:17 | PROVIDERS: ATTEND Internal Medicine | DX: R61 Generalized hyperhidrosis (principal) ==

== ENCOUNTER → 2025-06-13 | Outpatient (CLI) | payer OTHER ==
[~2025-06-13] MED LIST changes: +GASTROGRAFIN SOLUTION 30 ML ONE; +ISOVUE-370 76% 100 ML VIAL ONE
== END ==
LOC: M PLAIMG 08:21
PROVIDERS: ATTEND Internal Medicine
DX: R10.9 Unspecified abdominal pain (principal)

== ENCOUNTER → 2025-07-17 | Outpatient (CLI) | payer OTHER ==
[~2025-07-17] MED LIST changes: -GASTROGRAFIN SOLUTION 30 ML ONE; -ISOVUE-370 76% 100 ML VIAL ONE
== END ==
LOC: M WUC 09:46
DX: M25.561 Pain in right knee (principal); M25.562 Pain in left knee